=== PATIENT | male | born 1950 | race Caucasian/White ===

== ENCOUNTER → 2020-02-10 15:53 | Outpatient (BNVA) | payer MEDICARE, SELFPAY | PROVIDERS: PCP Family Medicine; Visit Provider Nurse Practitioner | DX: R59.9 Enlarged lymph nodes, unspecified (principal) | CPT/HCPCS: 80053; 85025 ==

== ENCOUNTER 2020-02-21 09:46 | Outpatient (CLI) | payer MEDICARE, SELFPAY ==
--- NOTE | 2020-02-21 10:30 | CT_ITS ---
WS: [id number] CT NECK TECHNIQUE: Contrast-enhanced CT of the neck with coronal and sagittal reformatted images. CLINICAL INFORMATION: enlarged lymphnode DLP: 2944.[address] scans at [facility] use at least one of these dose optimization techniques: automat ed exposure control; mA and/or kV adjustment per patient size (includes targeted exams where dose is matched to clinical indication); or iterative reconstruction. FINDINGS:Heterogeneously enhancing tongue base mass measuring 3.1 x 2.8 x 3.1 cm consistent with miguelina gnancy. Recommend ENT consultation for further evaluation. Mild narrowing of the left greater than ri ght piriform sinus. Enhancing tongue base mass extends to involve the vallecula and free edge of the epiglottis. Parotid glands and submandibular glands are normal. Enlarged heterogeneously enhancing low-attenuatio n bilateral enlarged cervical lymph nodes left greater than right. Left neck lymph node posterior to the angle of mandible and anterior to the sternocleidomastoid measuring 2.3 x 1.7 x 3.5 cm AP by kraft sverse by craniocaudal. Additional adjacent enlarged heterogeneously enhancing lymph nodes. Left subm andibular lymph node measuring 1.6 cm. Findings are consistent with malignancy. Additional pathologic heterogeneous enhancing low-attenuation lymph node posterior to the angle of th e mandible on the right measuring 1.1 CM. Additional smaller but prominent lymph nodes in both cervic al chains level 2, level 3, and posterior triangle. In particular notable lymph nodes in the right lo wer neck posterior to the sternocleidomastoid measuring 11 mm also suspicious for malignancy. Mild fu llness in the left palatine tonsil recommend further evaluation with direct visualization. Bilateral tonsillar calcifications. Normal visualized cervical spine. Mild spondylitic changes. Partially visualized intracranial content s are unremarkable. Mastoid air cells and paranasal sinuses are well aerated. CT/CT neck w con* [id number] IMPRESSION: 1. Large heterogeneously enhancing tongue base mass measuring 2.8 x 3.1 x 3.1 cm consistent with malignancy. Recommend ENT consultation 2. Tongue base mass involves the free edge of the epiglottis and vallecula. Mi ld narrowing of the left piriform sinus. 3. Heterogeneously enhancing low-attenuation lymph nodes in both cervical jerrell ns consistent with metastatic disease most likely squamous cell carcinoma. Larg est left level 2 lymph node measures 1.7 x 2.3 CM. 4. Notable left submandibular lymph node measuring 1.6 CM. Heterogeneously enh ancing right level 2 lymph node at the angle of the mandible measuring 1.1 CM. 5. Mild fullness in the left palatine tonsil although no discrete enhancing ma ss. Recommend direct visualization. 6. Normal parapharyngeal fat. 7. Glottis and subglottic airway are normal.
[2020-02-21] MEDS: iohexol 300 mg/mL 100 mL Btl IV (11:23)
== END 2020-02-21 09:47 | disposition home or self-care (01) ==
LOC: RADWPI 09:51
PROVIDERS: PCP Family Medicine; Visit Provider Nurse Practitioner
DX: R59.9 Enlarged lymph nodes, unspecified (principal); D37.02 Neoplasm of uncertain behavior of tongue
CPT/HCPCS: 70491; Q9967

== ENCOUNTER 2020-03-04 08:58 | Outpatient (CLI) | payer MEDICARE, SELFPAY ==
--- NOTE | 2020-03-04 09:21 | MR_ITS ---
WS: [id number] MRI NECK with and without CONTRAST. COMPARISON: Neck CT 02/21/2020 Multiplanar, multisequence imaging is performed with and without contrast. Large enhancing mass centered at the tongue base involving the lingula and palatine tonsil on the LEF T. The mass extends across the midline to the RIGHT. There is involvement of the superior margin of t he epiglottis and extension into the LEFT piriform sinus. Mass measures 3.3 cm in length transversely x 3.0 cm and anterior posterior x 3.4 cm. There is mild mass effect and narrowing of the airway at t he level of the epiglottis. There are numerous enlarged necrotic enhancing lymph nodes along the cervical chains. These are predo minantly at level 2 with the largest cluster of lymph nodes measuring 5.1 x 2.7 cm. Abnormal lymph no ely at level 2 on the RIGHT with the entire cluster measuring 3.2 x 1.3 cm. Cluster of lymph nodes on the LEFT may be an infiltrate in the sternocleidomastoid muscle as a fat plane is no longer present. There are additional smaller lymph nodes at level 3. The visualized parotid glands and submandibular glands are negative. MR/MR orbit face neck wo/w* [id number] IMPRESSION: 1. Large enhancing mass centered at the tongue base with extension across the midline and inferiorly to involve the epiglottis. Involvement of the epiglottis and airway is greatest on the LEFT. Mass measures 3.3 x 3.0 x 3.4 cm. Similar in appearance to the prior CT of 02/21/2020. 2. Bilateral malignant lymphadenopathy, greatest necrotic lymph node burden on the LEFT with the largest cluster of lymph nodes at level 2 measuring 5.1 x 2. 7 cm.
== END 2020-03-04 08:59 | disposition home or self-care (01) ==
LOC: RADSHAW 09:06
PROVIDERS: PCP Nurse Practitioner; Visit Provider Specialist
DX: D37.02 Neoplasm of uncertain behavior of tongue (principal); R59.1 Generalized enlarged lymph nodes
CPT/HCPCS: 70543; A9579

== ENCOUNTER 2020-03-06 12:14 | Outpatient (CLI) | payer MEDICARE, SELFPAY | END 2020-03-06 12:15 | disposition home or self-care (01) | LOC: LAB 12:18 | PROVIDERS: PCP Nurse Practitioner; Visit Provider Specialist | DX: C02.9 Malignant neoplasm of tongue, unspecified (principal) | CPT/HCPCS: 88305 ==

== ENCOUNTER 2020-03-10 06:00 | Day surgery (SDC) | payer MEDICARE, SELFPAY ==
[2020-03-09 13:14] VITALS: BMI 24.0
[2020-03-10] VITALS (8 sets, daily range): BP systolic 141–180; BP diastolic 67–96; PULSE 69–80; RESP 16–20; TEMP 36.3–36.4; O2SAT 97–100
--- NOTE | 2020-03-10 05:58 | P.ANESASSM_ITS ---
Pre-Anesthetic Assessment Pre-Anesthetic Assessment: Height/Weight: Height 1.83 m Weight 80.286 kg Preop Diagnosis: tongue mass Proposed Procedure: Operation Date: 03/10/20 07:00 Proposed Procedures p Direct Laryngoscopy with biopsy base of tongue(Not Applicable) - Nishant Vinson MD s Excision Neck mass biosopy(Not Applicable) - Nishant Vinson MD Familial anesthetic complications: No hx of anesthsia Was Beta Destiney taken within 24 hours: N/A Last intake: NPO > 8 hrs Social: Social History: No alcohol and No tobacco Comment: Marijuana - 1 week ago Exam: Pre-Anes Outpt Exam: alert, oriented x 3, clear to auscultation bilaterally and regular rate & rhythm Airway: Cervical ROM: WNL MP: 4 Dentition: Other Additional comments: missing teeth Pulmonary: Pulmonary: Cough CV/HEM: CV/HEM: HTN : : None reported Hepatic: Hepatic: None reported GI: GI: None reported Comments: dysphagia associated with tongue mass Metabolic: Metabolic: None reported Musc/skel: Musc/skel: None reported Neuropsych: Neuropsych: None reported Anesthetic Plan: ASA status: 2 Anesthesia: General Risk of > 500 ml blood loss (7ml/kg in children): No Other Pertinent Information: MR/MR orbit face neck wo/w* [id number] IMPRESSION: 1. Large enhancing mass centered at the tongue base with extension across the midline and inferiorly to involve the epiglottis. Involvement of the epiglottis and airway is greatest on the LEFT. Mass measures 3.3 x 3.0 x 3.4 cm. Similar in appearance to the prior CT of 02/21/2020. 2. Bilateral malignant lymphadenopathy, greatest necrotic lymph node burden on the LEFT with the largest cluster of lymph nodes at level 2 measuring 5.1 x 2.7 cm. PFSH Anesthesia PFSH: Medical History (Updated 02/21/20 @ 14:20 by DAWIT Wright) Elevated blood pressure reading Gastro-esophageal reflux disease with esophagitis Surgical History Hx of colonoscopy (~2011) [facility] [place] [facility] [place] Family History Father CAD (coronary artery disease) Social History Smoking and tobacco status: former smoker Quit status (tobacco): has quit using tobacco Year quit tobacco: 2008 Former quit date comment: .5 PPD X 10 yrs Second hand smoke exposure: No Smoking risk assessment/counseling performed?: No Alcohol intake: never Desire information about alcohol rehabilitation?: No Counseling given: No Desire information about substance/drug rehabilitation?: No Counseling given: No Adopted: No Caregiver/support person: No Lives independently: Yes Household members: spouse Housing: House Marital status: service: No Current occupational status: employed 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
[2020-03-10] MEDS: sodium chloride 0.9% 1,000 ML 30 ML IV (06:35)
--- NOTE | 2020-03-10 06:54 | W.PM.OPSUD ---
Surgery/Procedure H&P Update DATE OF PROCEDURE: March 10, 2020 DATE H&P PERFORMED: 03/06/20 H&P UPDATE INFORMATION: I have reviewed H&P completed within last 30 days, I have examined patient prior to procedure and No changes to prior documentation PREOP DIAGNOSIS: Base of tongue mass PRIMARY INDICATION FOR PROCEDURE: Base of tongue and left neck mass PLANNED PROCEDURE: Operation Date: 03/10/20 07:00 Proposed Procedures p Direct Laryngoscopy with biopsy base of tongue(Not Applicable) - Nishant Vinson MD s Excision Neck mass biosopy(Not Applicable) - Nishant Vinson MD
[2020-03-10 06:57] LABS: Basophils % 0.1 %; Eosinophils # 0.1 10^3/uL (0.0-0.8); Eosinophils % 0.6 %; Hemoglobin 15.5 g/dL (11.7-16.6); Lymphocytes # 1.5 10^3/uL (0.8-4.8); Lymphocytes % 18.9 %; Mean Corpuscular HGB Conc 32.3 g/dL (30.0-36.0); Mean Corpuscular Hemoglobin 29.6 pg (28.0-34.0); Mean Corpuscular Volume 91.8 fL (80-94); Mean Platelet Volume 9.4 fL (7.4-10.4); Monocytes # 0.7 10^3/uL (0.2-0.9); Neutrophils # 5.9 10^3/uL (1.8-7.7); Neutrophils % 72.2 %; Nucleated Red Blood Cells % 0 %; Platelet Count 274 10^3/cmm (130-400); Red Blood Count 5.23 10^6/uL (4.1-5.3); Red Cell Distribution Width 12.3 % (12.1-15.1); White Blood Count 8.1 10^3/uL (4.0-10.0)
[2020-03-10 07:12] LABS: Blood Urea Nitrogen 13 mg/dL (8-23); Calcium 9.5 mg/dL (8.5-10.5); Carbon Dioxide 24 mmol/L (22-29); Chloride 103 mmol/L (98-107); Glomerular Filtration Rate 84.2 mL/min (90-130); Glucose 120 mg/dL (65-115); Osmolality Calculated 287 mOsm/kg (285-295); Sodium 140 mmol/L (136-145)
[2020-03-10] MEDS: neomycin-poly-bacitracin oint 28 gm 1 APPLIC TOPICAL (07:49)
[2020-03-10] MEDS: EPINEPHrine 1 mg/mL INJ XX (08:02)
[2020-03-10] MEDS: fluorescein 1 mg Strip XX (08:10)
--- NOTE | 2020-03-10 08:38 | P.OP_ITS ---
Operative Report Date of procedure: March 10, 2020 Pre-op Diagnosis: 1) Left Base of tongue mass, 2) Left Neck Mass Post-op diagnosis: same Post-op Findings: Left Base of Tongue Mass Left Neck Mass Procedure Done: Direct Laryngoscopy with Biopsy Open biopsy, Left Neck Mass Specimens removed/disposition: Left Base of Tongue biopsy Left Neck Mass Biopsy Surgeon: Nishant Vinson Paving Supervisor: Agustina Jennings Anesthesia: General Estimated blood loss (mL): 10 IV fluids (mL): 1,000 Complications: None Condition: stable Disposition: PACU Brief History: 69 yo wm with a h/o a left neck and left base of tongue mass who presents for surgical evaluation and biopsy. Procedure: The patient was identified in the preoperative holding area and was taken to the operating room where he was placed on the operating table in the supine position. Anesthesia was obtained with general endotracheal anesthesia and the table was turned 90 degrees to the patient's left. A skin incision was drawn out over the left neck mass approximately 3 fingerbreadths below the angle of the mandible at level 3 of the left neck. The incision was injected with local anesthesia and the patient was then prepped and draped in the usual sterile fashion. Using a 15 blade, an incision was made in the left neck over the level 3 neck mass. Using Metzenbaum scissors dissection proceeded into the subcutaneous tissues where this mass was encountered. The mass was dissected out on its lateral surface and biopsies were taken with a 15 blade. Hemostasis was achieved with bipolar cautery and a piece of Surgicel was placed in the biopsy site. At this point the wound was closed with interrupted 4-0 Monocryl and the skin was closed with a running 5-0 Prolene. The left neck wound was then cleaned and covered with triple antibiotic ointment. Attention was then t urned to the oral cavity. A bimanual exam was performed and a left sided tongue base mass was palpated. A surgical laryngoscope was advanced into the right oral cavity after placing a Silastic tooth guard on the patient. A systematic inspection was carried of the patient's oral cavity, oropharynx, hypopharynx, and larynx. There was an irregular left base of tongue mass that was biopsied with cup forceps. Hemostasis was achieved with topical application of 09/999 epinephrine. At this point a reinspection was carried out and the patient was found to have an otherwise normal vallecula. The epiglottis was normal, the aryepiglottic folds were normal, the false and true cords were normal and the pyriform sinuses were normal. Once the exam was accomplished, the laryngoscope and tooth guard were removed from the patient and the procedure was terminated. Control of the patient was returned to anesthesia where he underwent an uneventful reversal of anesthesia and extubation and was taken to the recovery room in stable condition. There were no operative or anesthetic complications.
== END 2020-03-10 09:44 | disposition home or self-care (01) ==
PROVIDERS: PCP Nurse Practitioner; Visit Provider Specialist
PROC: 0CJS8ZZ Inspection of Larynx, Via Natural or Artificial Opening Endoscopic (ICD-10-PCS; CPT 11106; principal; 2020-03-10 07:00)
PROC: (CPT 11106; 2020-03-10 07:00)
DX: C01 Malignant neoplasm of base of tongue (principal); R22.1 Localized swelling, mass and lump, neck; I10 Essential (primary) hypertension; Z82.49 Family history of ischemic heart disease and other diseases of the circulatory system; Z87.891 Personal history of nicotine dependence
CPT/HCPCS: 11106; 31535; 12345; 36415; 80048; 85025; 88307; 88309; J0171; J0690; J1100; J2001; J2250; J2370; J2405; J2704; J2710; J2765; J3010; J3490; J7030

== ENCOUNTER → 2020-06-25 09:44 | Outpatient (BNVA) | payer MEDICARE, SELFPAY | PROVIDERS: PCP Nurse Practitioner; Visit Provider Nurse Practitioner | DX: D64.9 Anemia, unspecified (principal); R39.11 Hesitancy of micturition; I10 Essential (primary) hypertension; Z85.819 Personal history of malignant neoplasm of unspecified site of lip, oral cavity, and pharynx; Z93.1 Gastrostomy status | CPT/HCPCS: 80053; 81000; 85025; G0103 ==

== ENCOUNTER 2020-06-26 19:42 | Emergency (ER) | payer MEDICARE, SELFPAY ==
[2020-06-26 20:11] VITALS: BP 98/61; PULSE 100; RESP 18; TEMP 37.2; O2SAT 97; BMI 20.9
--- NOTE | 2020-06-26 20:31 | ECG_ITS ---
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 Measurements Intervals [place] Rate: 77 P: 32 WI: 149 QRS: 21 QRSD: 71 T: 37 QT: 349 QTc: 396 Interpretive Statements SINUS RHYTHM No previous ECG available for comparison Electronically Signed On 06-28-2020 20:31:07 CDT by Joaquin Olsen M.D. [id number]
[2020-06-26 20:46] LABS: Basophils % 0.3 %; Eosinophils % 0.3 %; Hematocrit 24.1 % (42.0-52.0); Hemoglobin 7.6 g/dL (11.7-16.6); Lymphocytes # 0.5 10^3/uL (0.8-4.8); Lymphocytes % 12.1 %; Mean Corpuscular HGB Conc 31.5 g/dL (30.0-36.0); Mean Corpuscular Hemoglobin 31.8 pg (28.0-34.0); Mean Corpuscular Volume 100.8 fL (80-94); Mean Platelet Volume 8.6 fL (7.4-10.4); Monocytes # 0.6 10^3/uL (0.2-0.9); Monocytes % 14.9 %; Neutrophils # 2.79 10^3/uL (1.8-7.7); Neutrophils % 71.4 %; Nucleated Red Blood Cells % 0 %; Platelet Count 331 10^3/cmm (130-400); Red Blood Count 2.39 10^6/uL (4.1-5.3); Red Cell Distribution Width 18.4 % (12.1-15.1); White Blood Count 3.9 10^3/uL (4.0-10.0)
[2020-06-26 20:59] LABS: INR 0.89 (0.8-1.2)
[2020-06-26 21:02] VITALS: BP 107/72; BP 91/57; BP 94/63; PULSE 88; PULSE 99
[2020-06-26 21:08] LABS: Alanine Aminotransferase 26 U/L (0-41); Albumin Level 3.5 g/dL (3.5-5.2); Alkaline Phosphatase 72 IU/L (40-130); Anion Gap 15.6 (5-19); Aspartate Amino Transferase 30 U/L (0-40); Blood Urea Nitrogen 30 mg/dL (8-23); Calcium 9.5 mg/dL (8.5-10.5); Carbon Dioxide 26 mmol/L (22-29); Chloride 94 mmol/L (98-107); Creatine Phosphokinase 24 U/L (39-308); Globulin 2.4 g/dL (1.3-4.6); Glomerular Filtration Rate 46.7 mL/min (90-130); Glucose 151 mg/dL (65-115); Osmolality Calculated 281 mOsm/kg (285-295); Potassium 4.6 mmol/L (3.5-5.1); Sodium 131 mmol/L (136-145); Total Bilirubin 0.2 mg/dL (0.15-1.2); Total Protein 5.9 g/dL (6.6-8.7)
[2020-06-26 21:11] LABS: Troponin(5th) Baseline 10 ng/L (0-15)
[2020-06-26 22:27] VITALS: BP 108/69; PULSE 86; RESP 16; TEMP 36.9; O2SAT 97
[2020-06-26] MEDS: sodium chloride 0.9% 100 mL Bag 50 ML IV (22:29)
[2020-06-26 22:30] VITALS: BP 111/71; PULSE 83; RESP 16; TEMP 36.9; O2SAT 97
--- NOTE | 2020-06-26 22:31 | ECG_ITS ---
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 Measurements Intervals [place] Rate: 69 P: 34 NE: 154 QRS: 19 QRSD: 68 T: 36 QT: 357 QTc: 383 Interpretive Statements SINUS RHYTHM Compared to ECG 06/26/2020 20:01:57 No significant changes Electronically Signed On 06-29-2020 17:37:39 CDT by Joaquin Olsen M.D. [id number]
--- NOTE | 2020-06-26 22:38 | PC.NURSE ---
Patient tolerating blood transfusion without difficulties. VS remain stable. Patient self repositioned in bed for maximum comfort. Lights dimmed, door closed to promote calming environment.
[2020-06-26 22:45] VITALS: BP 107/71; PULSE 85; RESP 15; TEMP 36.9; O2SAT 98
[2020-06-27 00:22] VITALS: BP 121/83; PULSE 78; RESP 16; TEMP 37
--- NOTE | 2020-06-27 00:24 | PC.NURSE ---
Patient tolerated first transfusion without difficulties. NAD noted. VSS. 2nd transfusion has been initiated.
[2020-06-27 00:28] VITALS: BP 121/83; PULSE 81; RESP 14; O2SAT 99
--- NOTE | 2020-06-27 00:31 | ED_ITS ---
HPI - Dizziness General: Chief Complaint: Dizziness Stated Complaint: sent from doc for blood? Time Seen by Provider: 06/26/20 20:19 History of Present Illness: HPI Narrative: 69-year-old male complains of progressive weakness and dizziness, especially with changing position over the past couple of days. He saw his primary nurse practitioner yesterday, and laboratory was ordered. She had called him earlier today to tell him that his blood count was low, which may be a cause of his symptoms. 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 His last induction was on the I believe of May. He denies any bloody, dark, or tarry stools. MD elicited complaint: dizziness, lightheadedness and difficulty walking Pertinent past history: anemia Onset (ago): day(s) Timing: gradual onset Severity: moderate Description: lightheadedness and difficulty walking Context: recent illness History of similar symptoms: No Exacerbating factors: change in body position, exertion and standing Relieving factors: nothing Associated symptoms: Reports short of breath; Denies change in hearing, chest pain, chills, fevers/chills, headache(s), nausea or vomiting Review of Systems Const: Denies: fever(s) or chills Eyes: Denies: change in vision or blurry vision ENMT: Denies: swelling of lips/tongue, change in hearing, epistaxis or sinus pain Card: Denies: chest pain Resp: Denies: dyspnea, productive cough, non-productive cough or wheezing GI: Denies: nausea or vomiting : Denies: difficulty urinating, dysuria or hematuria Musc: Reports: back pain; Denies: neck pain, joint redness or joint warmth Skin/Breast: Denies: rash or pruritus Neuro: Denies: headache(s) Psych: Denies: anxiety PFSH ED PFSH: Medical History (Updated 06/27/20 @ 00:45 by Duglas Wilkerson DO) Gastro-esophageal reflux disease with esophagitis Gastrointestinal tube in situ 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 Bennett Surgical History Hx of colonoscopy (~2011) [facility] [place] Family History Father CAD (coronary artery disease) Social History Smoking and tobacco status: former smoker Quit status (tobacco): has quit using tobacco Year quit tobacco: 2008 Former quit date comment: .5 PPD X 10 yrs Second hand smoke exposure: No Smoking risk assessment/counseling performed?: No Alcohol intake: never Desire information about alcohol rehabilitation?: No Counseling given: No Desire information about substance/drug rehabilitation?: No Counseling given: No Adopted: No Caregiver/support person: No Lives independently: Yes Household members: spouse Housing: House Marital status: service: No Current occupational status: employed 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 Pets and animals: Yes (dogs) History of recent travel: No Current gender identity: Male Physical Exam Const: GENERAL APPEARANCE: well developed ORIENTATION/CONSCIOUSNESS: Yes oriented to person, Yes oriented to place and Yes oriented to time HENMT: COMMON NORMALS: normocephalic, external ears normal and Normal external nose present HEAD & SCALP: normocephalic FACE & SINUS: normal facial exam NOSE: Normal external nose present and No nasal discharge present EXTERNAL EAR: Yes external ears normal Eye: COMMON NORMALS: Equal, round and reactive pupils present, EOMs intact bilaterally and conjunctivae normal EYELID: eyelids normal CONJUNCTIVA: Yes conjunctivae normal PUPIL: Yes Equal, round and reactive pupils present Neck/C-Spine: COMMON NORMALS: full ROM GENERAL: No tracheal deviation CERVICAL SPINE: Yes normal cervical lordosis and No Cervical spine tenderness Chest: COMMONS NORMALS: normal inspection of the chest CHEST: No tenderness Resp: COMMON NORMALS: clear to auscultation bilaterally EFFORT & INSPECTION: No tachypneic, No respiratory distress, No retractions, No uses accessory muscles and No tracheal deviation AUSCULTATION: clear to auscultation bilaterally, no rhonchi, no wheezes and lung sounds not diminished Cardio: COMMON NORMALS: regular rate and regular rhythm RATE: regular rate RHYTHM: regular rhythm HEART SOUNDS: no murmurs PERIPHERAL PULSES: radial pulses present GI: INSPECTION: No abdominal distension AUSCULTATION: No Hyperactive bowel sounds present and No Hypoactive bowel sounds present PALPATION: No Guarding due to palpation present (GI) and No Rigid due to palpation PERCUSSION: no dullness to percussion and no tympanic to percussion Neuro: SENSORIUM/ORIENTATION: Yes oriented to person, Yes oriented to place and Yes oriented to time Psych: COMMON NORMALS: mental status grossly normal Skin: COMMON NORMALS: no rashes or lesions noted GENERAL SKIN EXAM: no rashes or lesions noted Course Vital Signs: Vital signs: Vital Signs Temperature 98.6 F 06/27/20 00:37 Pulse Rate 77 06/27/20 00:37 Respiratory Rate 16 06/27/20 00:37 Blood Pressure 111/72 06/27/20 00:37 Pulse Oximetry 99 06/27/20 00:37 MDM - Dizziness MDM Narrative: Medical decision making narrative: Patient is normotensive. He is non-tachycardic he is rather symptomatic. His hemoglobin is 7.6. It was over 12 in February. He is crossmatched for 2 units of packed red blood cells here, and transfused. He had no problems with his transfusion he is feeling improved. We will watch him for a bit, and then discharge him back to home to continue with oncology follow-up. Lab Data: Labs: Lab Results 06/26/20 06/26/20 06/26/20 Range/Units 20:27 20:27 20:27 WBC 3.9 L (4.0-10.0) 10^3/ uL RBC 2.39 L (4.1-5.3) 10^6/u L Hgb 7.6 L (11.7-16.6) g/dL Hct 24.1 L (42.0-52.0) % MCV 100.8 H (80-94) fL MCH 31.8 (28.0-34.0) pg MCHC 31.5 (30.0-36.0) g/dL RDW 18.4 H (12.1-15.1) % Plt Count 331 (130-400) 10^3/c mm MPV 8.6 (7.4-10.4) fL Neut % (Auto) 71.4 % Lymph % (Auto) 12.1 % Boundary % (Auto) 14.9 % Eos % (Auto) 0.3 % Baso % (Auto) 0.3 % Neut # (Auto) 2.79 (1.8-7.7) 10^3/u L Lymph # (Auto) 0.5 L (0.8-4.8) 10^3/u L Boundary # (Auto) 0.6 (0.2-0.9) 10^3/u L Eos # (Auto) 0.0 (0.0-0.8) 10^3/u L Baso # (Auto) 0.0 (0.0-0.1) 10^3/u L Nucleated RBC % (a uto) 0 % Nucleated RBCs # 0.0 /100WBC PT 12.30 (12.1-14.9) SECO NDS INR 0.89 (0.8-1.2) Sodium (136-145) mmol/L Potassium (3.5-5.1) mmol/L Chloride (98-107) mmol/L Carbon Dioxide (22-29) mmol/L Anion Gap (5-19) BUN (8-23) mg/dL Creatinine (0.7-1.2) mg/dL GFR Calculation (90-130) mL/min Glucose (65-115) mg/dL Calculated Osmolal ity (285-295) mOsm/k g Calcium (8.5-10.5) mg/dL Magnesium (1.7-2.3) mg/dL Total Bilirubin (0.15-1.2) mg/dL AST (0-40) U/L ALT (0-41) U/L Alkaline Phosphata se (40-130) IU/L Creatine Kinase (39-308) U/L Troponin T Baselin e (0-15) ng/L Total Protein (6.6-8.7) g/dL Albumin (3.5-5.2) g/dL Globulin (1.3-4.6) g/dL Blood Type O Negative Rho(D) Type Negative Antibody Screen Negative Crossmatch See Detail 06/26/20 06/26/20 Range/Units 20:27 20:27 WBC (4.0-10.0) 10^3/ uL RBC (4.1-5.3) 10^6/u L Hgb (11.7-16.6) g/dL Hct (42.0-52.0) % MCV (80-94) fL MCH (28.0-34.0) pg MCHC (30.0-36.0) g/dL RDW (12.1-15.1) % Plt Count (130-400) 10^3/c mm MPV (7.4-10.4) fL Neut % (Auto) % Lymph % (Auto) % Boundary % (Auto) % Eos % (Auto) % Baso % (Auto) % Neut # (Auto) (1.8-7.7) 10^3/u L Lymph # (Auto) (0.8-4.8) 10^3/u L Boundary # (Auto) (0.2-0.9) 10^3/u L Eos # (Auto) (0.0-0.8) 10^3/u L Baso # (Auto) (0.0-0.1) 10^3/u L Nucleated RBC % (a uto) % Nucleated RBCs # /100WBC PT (12.1-14.9) SECO NDS INR (0.8-1.2) Sodium 131 L (136-145) mmol/L Potassium 4.6 (3.5-5.1) mmol/L Chloride 94 L (98-107) mmol/L Carbon Dioxide 26 (22-29) mmol/L Anion Gap 15.6 (5-19) BUN 30 H (8-23) mg/dL Creatinine 1.5 H (0.7-1.2) mg/dL GFR Calculation 46.7 L (90-130) mL/min Glucose 151 H (65-115) mg/dL Calculated Osmolal ity 281 L (285-295) mOsm/k g Calcium 9.5 (8.5-10.5) mg/dL Magnesium 2.0 (1.7-2.3) mg/dL Total Bilirubin 0.2 (0.15-1.2) mg/dL AST 30 (0-40) U/L ALT 26 (0-41) U/L Alkaline Phosphata se 72 (40-130) IU/L Creatine Kinase 24 L (39-308) U/L Troponin T Baselin e 10 (0-15) ng/L Total Protein 5.9 L (6.6-8.7) g/dL Albumin 3.5 (3.5-5.2) g/dL Globulin 2.4 (1.3-4.6) g/dL Blood Type Rho(D) Type Antibody Screen Crossmatch Discharge Plan Discharge Patient Disposition: Home Clinical Impression: History of oral cancer Anemia Qualifiers: Anemia type: unspecified type Qualified Code(s): D64.9 - Anemia, unspecified Condition: Stable Prescriptions: No Action tamsulosin [Flomax] 0.4 mg capsule 0.4 mg PO DAILY Qty: 30 RF: 2 Discharge Orders: Discharge Order (Routine); Ordered 06/27/20 Ordered By: Duglas Wilkerson Referrals: Courtney Bernard, [employer] [Primary Care Provider] - 4-7 days Discharge Diet: Advance as tolerated Discharge Activity: Increase activity as tolerated Patient Instructions: Anemia (ED) Activity Restrictions/Additional Instructions: Return to the emergency department for worsening shortness of breath, generalized weakness, syncope or passing out, other concerning symptoms. Follow-up with your provider, and continue your oncology follow-up as well. Coding Level of Care Code ED Clinical Haematologist for [facility] Fwd Exam Comprehensive
[2020-06-27 00:37] VITALS: BP 111/72; PULSE 77; RESP 16; TEMP 37; O2SAT 99
[2020-06-27 02:50] VITALS: BP 118/73; PULSE 72; RESP 16; O2SAT 98
--- NOTE | 2020-06-27 03:12 | PC.NURSE ---
Patient completed the second transfusion without difficulties. NAD noted. VSS. Patient is up for discharge per Dr. Wilkerson. Due to the time of night, the patient will sleep until 0600 then his will be notified. The will be here to berry picker the at 0700.
[2020-06-27 07:15] VITALS: BP 150/92; PULSE 82; RESP 18; O2SAT 97
== END 2020-06-27 07:15 | disposition home or self-care (01) ==
PROVIDERS: Emergency Provider Emergency Medicine; PCP Nurse Practitioner
DX: D64.9 Anemia, unspecified (principal); Z85.819 Personal history of malignant neoplasm of unspecified site of lip, oral cavity, and pharynx; R06.02 Shortness of breath; Z87.891 Personal history of nicotine dependence
CPT/HCPCS: 12345; 36415; 36430; 80053; 82550; 83735; 84484; 85025; 85610; 86850; 86900; 86920; 93005; 99284; P9016

== ENCOUNTER → 2020-06-30 11:37 | Outpatient (BNVA) | payer MEDICARE, SELFPAY | PROVIDERS: PCP Nurse Practitioner; Visit Provider Nurse Practitioner | DX: D64.9 Anemia, unspecified (principal) | CPT/HCPCS: 85025 ==

== ENCOUNTER 2020-07-09 09:42 | Outpatient (CLI) | payer MEDICARE, SELFPAY ==
--- NOTE | 2020-07-09 09:55 | CT_ITS ---
WS: [id number] CT NECK WITHOUT CONTRAST. HISTORY: Malignant neoplasm at the base of the tongue, swelling and lump. TECHNIQUE: Contiguous 5 mm axial images are performed through the neck without intravenous contrast. Sagittal and coronal reformats are also submitted. All CT scans at [facility] use at leas t one of these dose optimization techniques: automated exposure control; mA and/or kV adjustment per patient size (includes targeted exams where dose is matched to clinical indication); or iterative rec onstruction. CONTRAST: CONTRAST: None DLP: 850.32 mGy.cm COMPARISON: 02/21/2020 and 03/04/2020 Significant improvement in the previously described mass involving the tongue base, epiglottis and va llecula. There is some very mild residual asymmetric thickening involving the tongue base does cross the midline. Since the prior CT examination there is been a significant improvement. Less mass effect and narrowing of the hypopharynx. There is less involvement involving the epiglottis. There is some very mild asymmetry of the airway which is probably related to prior treatment and there is a small a mount of edema at the level of the vocal cords. Previously described lymphadenopathy has improved. Large residual level 2 lymph node on the LEFT at 1 .3 cm. Significant decrease in size of the level 2 lymph node on the right now measuring less than a centimeter. Interval change in appearance of the RIGHT jugular vein. Jugular vein is enlarged and the wall is of increased density as compared to the lumen. No IV contrast was given for this examination but jugular vein thrombosis on the RIGHT is not excluded. No osseous abnormalities. Visualized portions of the skull base demonstrate no abnormalities. Orbits and globes are within norm al limits. No soft tissue masses. Visualized paranasal sinuses and mastoid air cells are normal. Slightly spiculated nodule measuring 5 mm at the RIGHT apex. May have been present on the prior study but better seen today. CT/CT neck wo con [id number] IMPRESSION: 1. This examination was performed without IV contrast. 2. Significant decrease in size of the previously described tongue base mass w ith extension to the epiglottis. Persistent enhancement cannot be determined wi thout IV contrast but there is just very minimal LEFT parapharyngeal soft tissu e thickening and thickening along the posterior tongue. 3. Significant decrease in size of the cervical chain lymph nodes. The largest lymph node at level II on the LEFT is 13 mm. 4. Indeterminate for RIGHT jugular vein thrombosis, new since 02/21/2020. 5. 5 mm spiculated nodule at the RIGHT apex. Recommend follow-up chest CT in 3 months.
== END 2020-07-09 09:43 | disposition home or self-care (01) ==
LOC: RAD 09:44
PROVIDERS: PCP Nurse Practitioner; Visit Provider Specialist
DX: C01 Malignant neoplasm of base of tongue (principal); R22.1 Localized swelling, mass and lump, neck
CPT/HCPCS: 70490

== ENCOUNTER 2020-07-15 09:36 | Outpatient (CLI) | payer MEDICARE, SELFPAY ==
--- NOTE | 2020-07-15 09:40 | FL_ITS ---
WS: [id number] MODIFIED BARIUM SWALLOW TECHNIQUE: Modified barium swallow with speech therapy using multiple consistencies. FLUOROSCOPY TIME: 1.2 minutes. CLINICAL INFORMATION: Other dysphagia COMPARISON: None. FINDINGS: History of tongue base mass. Multiple consistencies utilized. Slightly delayed oropharyngeal phase with pooling in the vallecula. Penetration and aspiration with active cough clearing with the nectar consistency. FL/FL barium swallow modifd [id number] IMPRESSION: Penetration and aspiration with nectar consistency. Active cough clearing.
== END 2020-07-15 09:37 | disposition home or self-care (01) ==
LOC: RAD 09:39
PROVIDERS: PCP Nurse Practitioner; Visit Provider Specialist
DX: D37.02 Neoplasm of uncertain behavior of tongue (principal); R22.1 Localized swelling, mass and lump, neck; R13.10 Dysphagia, unspecified
CPT/HCPCS: 74230; 92611

== ENCOUNTER 2020-07-27 12:52 | Outpatient (CLI) | payer MEDICARE, SELFPAY ==
[2020-07-27 13:59] LABS: Basophils % 0.3 %; Eosinophils # 0.1 10^3/uL (0.0-0.8); Eosinophils % 0.9 %; Hematocrit 32.6 % (42.0-52.0); Hemoglobin 10.2 g/dL (11.7-16.6); Lymphocytes # 0.7 10^3/uL (0.8-4.8); Lymphocytes % 10.4 %; Mean Corpuscular HGB Conc 31.3 g/dL (30.0-36.0); Mean Corpuscular Hemoglobin 31.5 pg (28.0-34.0); Mean Corpuscular Volume 100.6 fL (80-94); Mean Platelet Volume 9.3 fL (7.4-10.4); Monocytes # 0.7 10^3/uL (0.2-0.9); Monocytes % 11.3 %; Neutrophils # 4.88 10^3/uL (1.8-7.7); Neutrophils % 76.8 %; Nucleated Red Blood Cells % 0 %; Platelet Count 221 10^3/cmm (130-400); Red Blood Count 3.24 10^6/uL (4.1-5.3); Red Cell Distribution Width 14.8 % (12.1-15.1); White Blood Count 6.4 10^3/uL (4.0-10.0)
--- NOTE | 2020-07-27 15:12 | ONC CON_ITS ---
Dr. Han New Patient Note Patient: Osman Almanza Unit #: [id number]: 1950 Dicatated By: Latonia Han M.D.Date of Visit: Jul 27, 2020 Onc MED New Patient/Consult Referring Physician: Linden Dick History of Present Illness: Mr. Osman Almanza, is a 69-year-old gentleman who was in his usual health until January 2020 when he was diagnosed with left base of tongue CA, p16 positive, nonkeratinizing type squamous cell carcinoma, clinical T4 N2 cM0, was referred to [facility] where he underwent combined chemoradiation with high-dose cisplatin 3 weekly x3 which he completed on June 04, 2020., And on June 10, 2020 he was admitted to [facility] with chills, generalized weakness, oral pain and coughing and his lab work-up done there showed creatinine 1.93, white blood count 1.6 ANC 1200 hemoglobin 8.8 hematocrit and platelets 178,000 patient was treated with IV antibiotics and then recently seen by PMD with progressive anemia and patient was given 2 units of packed RBC with that his follow-up labs done on June 30, 2020 showed white blood count 6 hemoglobin 11 hematocrit 33.7 platelets 360,000., As per patient his follow-up CT scan done at [place] after combined chemoradiation therapy showed excellent response to the treatment with resolution of left basilar tongue lesion but there was incidental finding of lung nodule, now being monitored and scheduled for follow-up CT scan of chest which is to be done today. Patient also has G-tube placement, which is functioning well. And now he has follow-up with speech/physical therapy regarding initiation of oral feeding and once start accepting orally, G-tube will be discontinued. Patient had colonoscopy done in 2007, as per patient it was unremarkable. Patient denies any melena or hematochezia, denies any hemoptysis or hematemesis, denies any jaundice but complaining of dry mouth otherwise no chest pain or shortness of breath no palpitation, no fever or chills. Past Medical History: Mr. Almanza'kulwant medical history is unremarkable. Past Surgical History: Mr. Almanza's surgical/procedural history consists of g tube placement in 2019 and central line placement in 2019. Medications: Tamsulosin HCl 1 Tablet (of 0.4 mg) Capsule Oral daily Allergies: No Known Allergies. Social History: Mr. Almanza is and he is an unknown. Mr. Almanza no longer smokes. He has no history of drinking. Family History: There is no documented family history. Review Of Symptoms: Constitutional - Appetite is good and weight is stable. No fever, night sweats, or hot flashes. Energy level is fair, ENMT - No sinus congestion/drainage. No mouth sores. No sore throat or difficulty swallowing, Hematologic/Lymphatic - No abnormal bruising or bleeding, Respiratory - No shortness of breath. No cough. No pleuritic pain or hemoptysis, Cardiovascular - No angina pain. No palpitations, Gastrointestinal - No nausea or vomiting. No heartburn or acid reflux. No diarrhea or constipation. No blood in the stool or black stools, Genitourinary (M) - No dysuria or hematuria. No urinary frequency. No urgency or incontinence, Musculoskeletal - No joint or bone pain, Neurologic - No headache. Positive for dizziness upon standing. No numbness or tingling. No other focal neurologic symptoms, Psychiatric - No anxiety or depression. No insomnia. Vital Signs: Performed on Jul 27, 2020 14:16: 0, 22.12, 1.91 sq.m, 71 in, 98 %, 87 /min, 16 /min, 134/62 mm(hg), 98.0 F (LOW), and 158.6 lbs (HIGH). Performance Status: 1 - No physically strenuous activity, but ambulatory and able to carry out light or sedentary work (e.g. office work, light house work). (ECOG) Physical Examination: ENMT - Post chemoradiation changes on the neck, dry oral mucosa but no mucositis or thrush or jaundice, Respiratory - Lungs are clear to auscultation, Cardiovascular - Regular rate and rhythm of heart, Abdomen - Soft, bowel sounds present, G tube site, clean, Extremities - No visible edema. Lab/Imaging: Most recent lab results are not available for this patient. Impression: Macrocytic normochromic anemia etiology unclear could be nutritional as patient is on G-tube feeding since diagnosed with tongue CA, other possibility could be due to chemoradiation or chronic blood loss from chemoradiation induced pharyngitis or considering his age underlying myelodysplasia cannot be ruled out. Status post 2 units of packed RBCs in June 2020 History of left base of tongue CA nonkeratinizing type squamous cell carcinoma p16 positive, T4a, N2C, M0, stage Tameka, status post combined chemoradiation with high-dose cisplatin 3 weekly x3 completed on June 04, 2020 at [facility], as per patient, follow-up CT scan shows excellent response Incidental finding of lung nodule, now being monitored with follow-up CT scan of chest. History of smoking 3 pack/year, now quit. Plan: Discussed with patient regarding his labs white blood count 6.4 hemoglobin 10.2 hematocrit 32.6 platelets 221,000 MCV 100.6 with a normal differential Clinically, patient doing reasonably well, now recovering from combined chemoradiation therapy with high-dose cisplatin, patient still using G-tube but now being evaluated by speech/physical therapy for oral feeding. As far as anemia is concerned etiology could be multifactorial including nutritional as patient was on G-tube feeding for more than 3 months other possibility could be due to combined chemoradiation or due to mild renal insufficiency or considering his age underlying myelodysplasia cannot be ruled out. Patient received 2 units of packed RBCs with that hemoglobin improved to 11 g when checked on June 30, 2020, his follow-up CBC done today showed persistent moderate anemia hemoglobin 10.2 g hematocrit 32.6 with MCV 100.6, at this point will consider basic anemia work-up which includes iron studies, B12 folic acid level and reticulocyte count and if there is no abnormality and hemoglobin continued to drop, will check copper level and also may consider bone marrow evaluation. Patient return to clinic in 2 weeks with CBC and will also follow with a CT scan of chest which is scheduled for today for lung nodule. Signed By: Latonia Han M.D. <<Signature on File>>
[2020-07-27 15:54] LABS: Iron 47 ug/dL (59-158); Percent Saturation 23.1 % (20-50); Total Iron Binding Capacity 203 mcg/dl; Unsaturated Iron Binding 156 ug/dL (112-347)
[2020-07-27 16:06] LABS: Ferritin 1491 ng/mL (30-400)
[2020-07-27 16:09] LABS: Vitamin B12 1304 pg/mL (232-1245)
[2020-07-27 16:22] LABS: Folate Level > 20.0 ng/mL (4.5-32.2)
== END 2020-07-27 12:53 | disposition home or self-care (01) ==
LOC: ONCMED 12:55
PROVIDERS: PCP Nurse Practitioner; Visit Provider Internal Medicine Hematology & Oncology
DX: Z08 Encounter for follow-up examination after completed treatment for malignant neoplasm (principal); Z85.810 Personal history of malignant neoplasm of tongue; D50.0 Iron deficiency anemia secondary to blood loss (chronic); D53.9 Nutritional anemia, unspecified; R91.1 Solitary pulmonary nodule; Z93.1 Gastrostomy status; Z92.3 Personal history of irradiation; Z87.891 Personal history of nicotine dependence; Z92.21 Personal history of antineoplastic chemotherapy
CPT/HCPCS: 36415; 71250; 82607; 82728; 82746; 83540; 83550; 85025; 85045; 99203

== ENCOUNTER 2020-07-27 14:42 | Outpatient (CLI) | payer MEDICARE, SELFPAY ==
--- NOTE | 2020-07-27 14:53 | CT_ITS ---
WS: [id number] CT CHEST WITHOUT INTRAVENOUS CONTRAST HISTORY: MALIGNANT NEOPLASM AT BASE OF TONGUE TECHNIQUE: Contiguous 5 mm axial imaging performed on the thorax. Coronal and sagittal reformats are submitted. All CT scans at [facility] use at least one of these dose optimization techniq ues: automated exposure control; mA and/or kV adjustment per patient size (includes targeted exams wh ere dose is matched to clinical indication); or iterative reconstruction. CONTRAST: None DLP: 804.65 mGycm COMPARISON: Neck CT 07/09/2020 Lungs and central airway: Hyperexpanded lungs with emphysema. Benign calcified granuloma scattered th roughout the lungs. Bilateral upper lobe pulmonary nodules. The RIGHT spiculated nodule measuring 5 m m has not significantly changed. There are a few very small 3 to 4 mm nodules at the LEFT apex these nodules are may be postinflammatory. These were present on 02/21/2020. No abnormality was noted on the prior PET/CT from 04/02/2020. Pleura: Normal. No pleural effusion. Heart and pericardium: Normal size heart with no pericardial effusion. Mediastinum and lynda: Small mediastinal and hilar lymph nodes. Several of these lymph nodes are calci fied consistent with benign disease. No enlarging nodes. Vessels: Mild atherosclerosis aorta. Normal size pulmonary artery. RIGHT jugular vein is enlarged. Kn own thrombosis. Chest wall and lower neck: None RIGHT jugular vein thrombosis. Upper abdomen: PEG tube remains in good position. No adenopathy identified. Osseous structures: No destructive process. CT/CT chest wo con [id number] IMPRESSION: 1. Subcentimeter, bilateral upper lobe pulmonary nodules. No increase in size since 07/09/2020. Negative on the PET/CT of 04/02/2020 but may be too small to ac curately assess by PET/CT. Suggest [address] follow-up. 2. Prior granulomatous disease. 3. PEG tube remains in good position. 4. No enlarging mediastinal or hilar lymph nodes.
== END 2020-07-27 14:43 | disposition home or self-care (01) ==
LOC: RADWPI 14:48
PROVIDERS: PCP Nurse Practitioner; Visit Provider Specialist
DX: C01 Malignant neoplasm of base of tongue (principal); R91.8 Other nonspecific abnormal finding of lung field
CPT/HCPCS: 71250

== ENCOUNTER 2020-07-28 06:00 | Outpatient (RCR) | payer MEDICARE, SELFPAY | END 2020-08-24 23:59 | disposition home or self-care (01) | LOC: TST 06:00 | PROVIDERS: PCP Nurse Practitioner; Referring Provider Nurse Practitioner; Visit Provider Nurse Practitioner | DX: D37.02 Neoplasm of uncertain behavior of tongue (principal); R13.12 Dysphagia, oropharyngeal phase | CPT/HCPCS: 92526; 92610 ==

== ENCOUNTER 2020-08-10 06:23 | Outpatient (CLI) | payer MEDICARE, SELFPAY ==
[2020-08-10 14:52] LABS: Basophils % 0.3 %; Eosinophils # 0.1 10^3/uL (0.0-0.8); Eosinophils % 2.3 %; Hematocrit 32.7 % (42.0-52.0); Hemoglobin 10.5 g/dL (11.7-16.6); Lymphocytes # 0.6 10^3/uL (0.8-4.8); Lymphocytes % 9.1 %; Mean Corpuscular HGB Conc 32.1 g/dL (30.0-36.0); Mean Corpuscular Hemoglobin 32.2 pg (28.0-34.0); Mean Corpuscular Volume 100.3 fL (80-94); Mean Platelet Volume 9.7 fL (7.4-10.4); Monocytes # 0.6 10^3/uL (0.2-0.9); Monocytes % 9.2 %; Neutrophils % 77.6 %; Nucleated Red Blood Cells % 0 %; Platelet Count 248 10^3/cmm (130-400); Red Blood Count 3.26 10^6/uL (4.1-5.3); Red Cell Distribution Width 13.5 % (12.1-15.1); White Blood Count 6.1 10^3/uL (4.0-10.0)
== END 2020-08-10 06:24 | disposition home or self-care (01) ==
LOC: ONCMED 06:25
PROVIDERS: PCP Nurse Practitioner; Visit Provider Internal Medicine Hematology & Oncology
DX: D64.9 Anemia, unspecified (principal); Z85.810 Personal history of malignant neoplasm of tongue
CPT/HCPCS: 36415; 85025

== ENCOUNTER 2020-08-11 05:58 | Outpatient (CLI) | payer MEDICARE, SELFPAY ==
--- NOTE | 2020-08-11 10:06 | ONC FU_ITS ---
Dr. Han follow up note Patient: Osman Almanza Unit #: [id number]: 1950 Dicatated By: Latonia Han M.D.Date of Visit:Aug 11, 2020 Onc Med Follow-up/Prog Note History of Present Illness: Mr. Osman Almanza, is a 69-year-old gentleman who was in his usual health until January 2020 when he was diagnosed with left base of tongue CA, p16 positive, nonkeratinizing type squamous cell carcinoma, clinical T4 N2 cM0, was referred to [facility] where he underwent combined chemoradiation with high-dose cisplatin 3 weekly x3 which he completed on June 04, 2020., And on June 10, 2020 he was admitted to [facility] with chills, generalized weakness, oral pain and coughing and his lab work-up done there showed creatinine 1.93, white blood count 1.6 ANC 1200 hemoglobin 8.8 hematocrit and platelets 178,000 patient was treated with IV antibiotics and then recently seen by PMD with progressive anemia and patient was given 2 units of packed RBC with that his follow-up labs done on June 30, 2020 showed white blood count 6 hemoglobin 11 hematocrit 33.7 platelets 360,000., As per patient his follow-up CT scan done at [place] after combined chemoradiation therapy showed excellent response to the treatment with resolution of left basilar tongue lesion but there was incidental finding of lung nodule, now being monitored and scheduled for follow-up CT scan of chest which is to be done today. Patient also has G-tube placement, which is functioning well. And now he has follow-up with speech/physical therapy regarding initiation of oral feeding and once start accepting orally, G-tube will be discontinued. Patient had colonoscopy done in 2007, as per patient it was unremarkable. Patient denies any melena or hematochezia, denies any hemoptysis or hematemesis, denies any jaundice but complaining of dry mouth otherwise no chest pain or shortness of breath no palpitation, no fever or chills. Follow-up CT scan of chest for subcentimeter, bilateral upper lobe pulmonary nodules done on July 27, 2020 showed no increase in size since July 09, 2020, negative on CT PET scan done in March 2020.. Prior granulomatous disease, no enlarging mediastinal or hilar lymph nodes. Came for follow-up, denies any specific complaints except mild dizziness when he stands up but no blurred vision or double vision no fever chills, no nausea or vomiting no chest pain, no shortness of breath no palpitation, patient is undergoing evaluation by speech therapy regarding swallowing and still using G-tube for nutrition. Denies any hemoptysis or hematemesis denies any melena or hematochezia denies any jaundice. Medications: Tamsulosin HCl 1 Tablet (of 0.4 mg) Capsule Oral daily Allergies: No Known Allergies. Review of Systems: Constitutional - Appetite is good and weight is stable. No fever, night sweats, or hot flashes. Energy level is fair, ENMT - No sinus congestion/drainage. No mouth sores. No sore throat or difficulty swallowing, Hematologic/Lymphatic - No abnormal bruising or bleeding, Respiratory - No shortness of breath. No cough. No pleuritic pain or hemoptysis, Cardiovascular - No angina pain. No palpitations, Gastrointestinal - No nausea or vomiting. No heartburn or acid reflux. No diarrhea or constipation. No blood in the stool or black stools, Genitourinary (M) - No dysuria or hematuria. No urinary frequency. No urgency or incontinence, Musculoskeletal - No joint or bone pain, Neurologic - No headache. Positive for dizziness upon standing. No numbness or tingling. No other focal neurologic symptoms, Psychiatric - No anxiety or depression. No insomnia. Vital Signs: Performed on Aug 11, 2020 09:22 Height - 71.00 in Weight - 155.8 lbs (LOW) BSA - 1.90 sq.m BMI - 21.73 Temperature - 97.8 F (LOW) Pulse - 65 /min Respiration - 18 /min BP - 127/75 mm(hg) O2 Sat - 97 % Performance Status: 1 - No physically strenuous activity, but ambulatory and able to carry out light or sedentary work (e.g. office work, light house work). (ECOG) Physical Examination: ENMT - No mouth sores, no thrush, no jaundice, Respiratory - Lungs are clear to auscultation, Cardiovascular - Regular rate and rhythm of heart, Abdomen - Soft, bowel sounds present, G-tube site is clean, Extremities - No visible edema. Lab/Imaging: Test performed on Jul 27, 2020 13:10 Ferritin 1491 ng/mL Folate, Serum > 20.0 ng/mL Iron 47 mcg/dL Vitamin B12 1304 pg/mL Iron Binding Capacity (TIBC) 203 mcg/dl % Iron Saturation 23.1 % UIBC 156 mcg/dL Retic Count % 2.6200 % WBC 6.4 10 3/uL RBC 3.24 10 6/uL HGB 10.2 g/dL HCT 32.6 % MCV 100.6 fL MCH 31.5 pg MCHC 31.3 g/dL RDW 14.8 % Platelet Count 221 10 3/cmm MPV 9.3 fL Neutrophils 4.88 10 3/uL Lymphocytes 0.7 10 3/uL Monocytes 0.7 10 3/uL Eosinophils 0.1 10 3/uL Basophils 0.0 10 3/uL Neutrophil % 76.8 % Lymphocyte % 10.4 % Monocyte % 11.3 % Eosinophil % 0.9 % Basophils % 0.3 % NRBC % 0 % Impression: Macrocytic normochromic anemia etiology unclear could be nutritional as patient is on G-tube feeding since diagnosed with tongue CA, other possibility could be due to chemoradiation or chronic blood loss from chemoradiation induced pharyngitis or considering his age underlying myelodysplasia cannot be ruled out. Status post 2 units of packed RBCs in June 2020 History of left base of tongue CA nonkeratinizing type squamous cell carcinoma p16 positive, T4a, N2C, M0, stage Tameka, status post combined chemoradiation with high-dose cisplatin 3 weekly x3 completed on June 04, 2020 at [facility], as per patient, follow-up CT scan shows excellent response Incidental finding of lung nodule, now being monitored with follow-up CT scan of chest., Follow-up CT scan of chest done on July 27, 2020 showed no increase in size since March 2020 and suggest follow-up in [address] scan of chest. History of smoking 3 pack/year, now quit. Plan: Discussed with patient regarding his labs white blood count 6.1 hemoglobin 10.5 hematocrit 32.7 platelets 248,000 MCV 100.3 is anemia work-up which includes iron studies shows iron saturation 23.1% ferritin 1491, folic acid more than 20, iron 47, TIBC 203 vitamin B12 1304, reticulocyte count 2.62 Clinically, patient is doing well with no new signs symptoms, now recovering from combined chemoradiation done for left base of tongue CA completed on June 04, 2020, patient has seen Dr. Vinson, recently now follow-up CT scan of neck been scheduling next 2 months. As far as bilateral upper lobe pulmonary nodules concerned, patient underwent follow-up CT scan of the chest on July 27, 2020 which showed no increase in size and no mediastinal lymphadenopathy.. So , repeat CT scan of the chest in 6 months was suggested. As far as, mild/moderate macrocytic anemia is concerned, his anemia work-up is inconclusive, his anemia could be multifactorial but hemoglobin is stable, will monitor and repeat CBC in 1 month and if it shows any drop, will consider bone marrow evaluation. Patient was advised to maintain good hydration, that may help his mild dizziness, patient was advised in case there is a worsening of dizziness he need to call us or go to hospital for evaluation. Signed By: Latonia Han M.D. <<Signature on File>>
== END 2020-08-11 05:59 | disposition home or self-care (01) ==
LOC: ONCMED 06:00
PROVIDERS: PCP Nurse Practitioner; Visit Provider Internal Medicine Hematology & Oncology
DX: D64.9 Anemia, unspecified (principal); R91.8 Other nonspecific abnormal finding of lung field; Z85.810 Personal history of malignant neoplasm of tongue; Z93.1 Gastrostomy status; Z92.21 Personal history of antineoplastic chemotherapy; Z92.3 Personal history of irradiation; Z87.891 Personal history of nicotine dependence
CPT/HCPCS: 99214

== ENCOUNTER 2020-08-25 06:00 | Outpatient (RCR) | payer MEDICARE, SELFPAY | END 2020-09-24 23:59 | disposition home or self-care (01) | LOC: TST 06:00 | PROVIDERS: PCP Nurse Practitioner; Referring Provider Nurse Practitioner; Visit Provider Nurse Practitioner | DX: R13.12 Dysphagia, oropharyngeal phase (principal) | CPT/HCPCS: 92526 ==

== ENCOUNTER 2020-09-01 09:28 | Outpatient (CLI) | payer MEDICARE, SELFPAY ==
--- NOTE | 2020-09-01 09:59 | MR_ITS ---
WS: [id number] INDICATION: Neoplasm TECHNIQUE: MRI of the neck without and with gadolinium enhancement. Axial T1 and T2 coronal T1 león l T2 coronal STIR sagittal T2 imaging FINDINGS: Comparison CT neck July 09, 2020 and PET/CT April 02, 2020 .prior MRI March 04, 2020 Previously described large enhancing neoplasm at the right tongue base extending to involve the epigl ottis has essentially resolved. Findings consistent with interval response to therapy. No evidence of measurable residual or recurrent neoplasm. Findings consistent with interval response to therapy. Edema within the hypopharynx and supraglottic pharyngeal soft tissues consistent with treatment-related changes. Edema within the vocal cords and v ocal folds. Small amount of fluid in the retropharyngeal space. Normal parapharyngeal fat. Mild edema in the epiglottis. Subglottic airway is normal. Normal parotid glands and submandibular glands. No cervical lymphadenopathy visualized today. Mild spondylitic moreno es cervical spine.Loss of the right jugular vein flow void suspicious for thrombus. This can be furth er evaluated with ultrasound MR/[place] [id number] IMPRESSION: Gadolinium was not administered. 1. Previously described tongue base neoplasm has essentially resolved with pos t therapeutic changes. 2. Findings compatible with interval response to therapy. 3. Mild edema in the hypopharynx and supraglottic soft tissues consistent with treatment-related changes. 4. Tiny amount of fluid in the retropharyngeal space. 5. No visualized cervical lymphadenopathy today. 6. Loss of the right jugular vein flow void suspicious for thrombus. This can be further evaluated with ultrasound. This is unchanged since the prior neck CT .
== END 2020-09-01 09:29 | disposition home or self-care (01) ==
LOC: RADWPI 09:31
PROVIDERS: PCP Nurse Practitioner; Visit Provider Specialist
DX: C01 Malignant neoplasm of base of tongue (principal); R60.0 Localized edema
CPT/HCPCS: 70336

== ENCOUNTER 2020-09-09 13:52 | Outpatient (CLI) | payer MEDICARE, SELFPAY ==
--- NOTE | 2020-09-09 14:08 | US_ITS ---
WS: [id number] ULTRASOUND SOFT TISSUES RIGHT neck HISTORY: LOCALIZED SWELLING, MASS AND LUMP NECK, no history of surgery. Tongue base carcinoma. COMPARISON: MRI 09/01/2020 TECHNIQUE: 2-D and color Doppler imaging is submitted. Hypoechoic soft tissue mass in the area of concern. There is no increased vascularity. Soft tissue ma ss is very hypoechoic and just anterior to the jugular vein. Mass measures 1.6 x 0.8 cm. US/US soft tissue head neck [id number] IMPRESSION: Palpable area in the RIGHT neck corresponds to 1.6 x 0.8 cm and is very low ech ogenicity. No increased vascularity. This may be an area of fibrosis and scarri ng from the prior radiation. Recommend continued follow-up. If this mass contin ues to enlarge may be residual neoplastic disease.
== END 2020-09-09 13:53 | disposition home or self-care (01) ==
LOC: US 13:58
PROVIDERS: PCP Nurse Practitioner; Visit Provider Specialist
DX: R22.1 Localized swelling, mass and lump, neck (principal)
CPT/HCPCS: 76536

== ENCOUNTER 2020-09-09 14:00 | Outpatient (CLI) | payer MEDICARE, SELFPAY ==
[2020-09-09 15:22] LABS: Basophils % 0.3 %; Eosinophils # 0.1 10^3/uL (0.0-0.8); Eosinophils % 1.5 %; Hematocrit 34.7 % (42.0-52.0); Hemoglobin 10.8 g/dL (11.7-16.6); Lymphocytes # 0.5 10^3/uL (0.8-4.8); Lymphocytes % 8.5 %; Mean Corpuscular HGB Conc 31.1 g/dL (30.0-36.0); Mean Platelet Volume 9.7 fL (7.4-10.4); Monocytes # 0.6 10^3/uL (0.2-0.9); Monocytes % 9.3 %; Neutrophils % 79.9 %; Nucleated Red Blood Cells % 0 %; Platelet Count 215 10^3/cmm (130-400); Red Blood Count 3.37 10^6/uL (4.1-5.3); White Blood Count 5.9 10^3/uL (4.0-10.0)
== END 2020-09-09 14:01 | disposition home or self-care (01) ==
PROVIDERS: PCP Nurse Practitioner; Visit Provider Internal Medicine Hematology & Oncology
DX: D64.9 Anemia, unspecified (principal); Z85.810 Personal history of malignant neoplasm of tongue
CPT/HCPCS: 85025

== ENCOUNTER 2020-09-10 14:47 | Outpatient (CLI) | payer MEDICARE, SELFPAY ==
--- NOTE | 2020-09-10 16:42 | ONC FU_ITS ---
Dr. Han follow up note Patient: Osman Almanza Unit #: [id number]: 1950 Dicatated By: Latonia Han M.D.Date of Visit:Sep 10, 2020 Onc Med Follow-up/Prog Note History of Present Illness: Mr. Osman Almanza, is a 69-year-old gentleman who was in his usual health until January 2020 when he was diagnosed with left base of tongue CA, p16 positive, nonkeratinizing type squamous cell carcinoma, clinical T4 N2 cM0, was referred to [facility] where he underwent combined chemoradiation with high-dose cisplatin 3 weekly x3 which he completed on June 04, 2020., And on June 10, 2020 he was admitted to [facility] with chills, generalized weakness, oral pain and coughing and his lab work-up done there showed creatinine 1.93, white blood count 1.6 ANC 1200 hemoglobin 8.8 hematocrit and platelets 178,000 patient was treated with IV antibiotics and then recently seen by PMD with progressive anemia and patient was given 2 units of packed RBC with that his follow-up labs done on June 30, 2020 showed white blood count 6 hemoglobin 11 hematocrit 33.7 platelets 360,000., As per patient his follow-up CT scan done at [place] after combined chemoradiation therapy showed excellent response to the treatment with resolution of left basilar tongue lesion but there was incidental finding of lung nodule, now being monitored and scheduled for follow-up CT scan of chest which is to be done today. Patient also has G-tube placement, which is functioning well. And now he has follow-up with speech/physical therapy regarding initiation of oral feeding and once start accepting orally, G-tube will be discontinued. Patient had colonoscopy done in 2007, as per patient it was unremarkable. Patient denies any melena or hematochezia, denies any hemoptysis or hematemesis, denies any jaundice but complaining of dry mouth otherwise no chest pain or shortness of breath no palpitation, no fever or chills. Follow-up CT scan of chest for subcentimeter, bilateral upper lobe pulmonary nodules done on July 27, 2020 showed no increase in size since July 09, 2020, negative on CT PET scan done in March 2020.. Prior granulomatous disease, no enlarging mediastinal or hilar lymph nodes. Follow-up CT scan of neck ordered by Dr. Vinson, done on September 01, 2020 showed previously described tongue base neoplasm has essentially resolved. Loss of right jugular vein flow void suspicious for thrombosis, ultrasound was recommended which was done on September 09, 2020 it showed soft tissue mass is very hypoechoic and just anterior to the jugular vein measure 1.6 x 0.8 cm could be fibrosis or scarring from the prior radiation therapy Came for follow-up, denies any specific complaint except off-and-on feel dizzy which is a chronic problem for him and tolerating orally well but using G-tube most of the time. No dysphagia, no nausea or vomiting.no diarrhea or constipation, no fever or chills denies any palpitation denies any chest pain denies any shortness of breath denies any blurred vision or double vision denies any earache. Medications: Tamsulosin HCl 1 Tablet (of 0.4 mg) Capsule Oral daily Allergies: No Known Allergies. Review of Systems: Constitutional - Appetite is good and weight is stable. No fever, night sweats, or hot flashes. Energy level is fair, ENMT - No sinus congestion/drainage. No mouth sores. Positive for sore throat or difficulty swallowing, Hematologic/Lymphatic - No abnormal bruising or bleeding, Respiratory - No shortness of breath. No cough. No pleuritic pain or hemoptysis, Cardiovascular - No angina pain. No palpitations, Gastrointestinal - No nausea or vomiting. No heartburn or acid reflux. No diarrhea or constipation. No blood in the stool or black stools, Genitourinary (M) - No dysuria or hematuria. No urinary frequency. No urgency or incontinence, Musculoskeletal - No joint or bone pain, Neurologic - No headache. Positive for dizziness upon standing. No numbness or tingling. No other focal neurologic symptoms, Psychiatric - No anxiety or depression. No insomnia. Vital Signs: Performed on Sep 10, 2020 15:53 Height - 71.00 in Weight - 157.4 lbs (HIGH) BSA - 1.90 sq.m BMI - 21.95 Temperature - 98.5 F Pulse - 79 /min Respiration - 16 /min BP - 140/68 mm(hg) O2 Sat - 97 % Pain - 0 Performance Status: 1 - No physically strenuous activity, but ambulatory and able to carry out light or sedentary work (e.g. office work, light house work). (ECOG) Physical Examination: ENMT - No mouth sores, no thrush, no jaundice, post chemoradiation changes in the neck, Respiratory - Lungs are clear to auscultation, Cardiovascular - Regular rate and rhythm of heart, Abdomen - Soft, bowel sounds present, Extremities - No visible edema. Lab/Imaging: Test performed on Aug 10, 2020 14:21 WBC 6.1 10 3/uL RBC 3.26 10 6/uL HGB 10.5 g/dL HCT 32.7 % MCV 100.3 fL MCH 32.2 pg MCHC 32.1 g/dL RDW 13.5 % Platelet Count 248 10 3/cmm MPV 9.7 fL Neutrophils 4.70 10 3/uL Lymphocytes 0.6 10 3/uL Monocytes 0.6 10 3/uL Eosinophils 0.1 10 3/uL Basophils 0.0 10 3/uL Neutrophil % 77.6 % Lymphocyte % 9.1 % Monocyte % 9.2 % Eosinophil % 2.3 % Basophils % 0.3 % NRBC % 0 % Test performed on Jul 27, 2020 13:10 Ferritin 1491 ng/mL Folate, Serum > 20.0 ng/mL Iron 47 mcg/dL Vitamin B12 1304 pg/mL Iron Binding Capacity (TIBC) 203 mcg/dl % Iron Saturation 23.1 % UIBC 156 mcg/dL Retic Count % 2.6200 % Impression: Macrocytic normochromic anemia etiology unclear could be nutritional as patient is on G-tube feeding since diagnosed with tongue CA, other possibility could be due to chemoradiation or chronic blood loss from chemoradiation induced pharyngitis or considering his age underlying myelodysplasia cannot be ruled out. Status post 2 units of packed RBCs in June 2020 History of left base of tongue CA nonkeratinizing type squamous cell carcinoma p16 positive, T4a, N2C, M0, stage Tameka, status post combined chemoradiation with high-dose cisplatin 3 weekly x3 completed on June 04, 2020 at [facility], as per patient, follow-up CT scan shows excellent response Incidental finding of lung nodule, now being monitored with follow-up CT scan of chest., Follow-up CT scan of chest done on July 27, 2020 showed no increase in size since March 2020 and suggest follow-up in [address] scan of chest. History of smoking 3 pack/year, now quit. Plan: Discussed with patient regarding his labs white blood count 6.1 hemoglobin 10.5 hematocrit 32.7 platelets 248,000 iron saturation 23.1% ferritin 1491 folate more than 20 iron 47 TIBC 203 vitamin B12 1304, reticulocyte count 2.6 Clinically, patient is doing reasonably well, now recovering from combined chemoradiation therapy done for CA tongue. As per patient he has seen Dr. Vinson lately and underwent CT scan of the neck on September 01, 2020 which showed no evidence of recurrence of disease. He is scheduled to see Dr. Vinson tomorrow for follow-up and then will discuss with him regarding switching from G-tube feeding to orally. As far as mild macrocytic anemia is concerned, his anemia work-up was inconclusive so considering his age could be due to underlying myelodysplasia or chemoradiation induced, his follow-up CBC shows some improvement in his hemoglobin, will continue to monitor he will return to clinic in 2 months with CBC CMP if his anemia persist, may consider bone marrow evaluation to rule out underlying myelodysplasia. As far as mild dizziness is concerned, could be due to mild dehydration, as there was a slight drop in his blood pressure from 131/86 while sitting and down to 122/70 when standing, patient was offered IV fluids but declined rather consider hydration through G-tube as patient said he is not symptomatic all the time it just happen off and on. Patient was advised in case there is a worsening of symptoms, he need to call us or go to the emergency room or contact his PMD. Signed By: Latonia Han M.D. <<Signature on File>>
== END 2020-09-10 14:48 | disposition home or self-care (01) ==
LOC: ONCMED 14:52
PROVIDERS: PCP Nurse Practitioner; Visit Provider Internal Medicine Hematology & Oncology
DX: D53.9 Nutritional anemia, unspecified (principal); Z85.810 Personal history of malignant neoplasm of tongue; Z97.8 Presence of other specified devices; R42 Dizziness and giddiness; Z92.21 Personal history of antineoplastic chemotherapy; Z92.3 Personal history of irradiation
CPT/HCPCS: 99214

== ENCOUNTER 2020-09-23 11:02 | Outpatient (CLI) | payer MEDICARE, SELFPAY ==
--- NOTE | 2020-09-23 | USCV_ITS ---
Osman lAmanza Age: 69 Gender: M : 1950 Exam Date: 09/23/2020 11:09 Ordering Phys: Nishant Vinson MD Technologist: Nancy Morse Exam Location: [facility] – [place] Indication: LTD STUDY TO REEXAMINE RT JUGULAR VEIN. HISTORY: See exam done 09-09-2020. Re examining the Rt. Jugular for DVT PROCEDURES: Venous Duplex imaging was performed in the Rt. Jugular Vein Rt. Subclavian Vein and Rt. Ax. vein. FINDINGS: The Rt. Jugular vein appears to contain debris and no flow. CONCLUSIONS Persistent Right IJ thrombus unchanged. Right subclavian and axillary vein patent. Comp 09/09/2020 Colin Denton MD (Electronically Signed) Final Date: 23 September 2020 16:37 S
== END 2020-09-23 11:03 | disposition home or self-care (01) ==
LOC: US 11:02
PROVIDERS: PCP Nurse Practitioner; Visit Provider Specialist
DX: I82.C11 Acute embolism and thrombosis of right internal jugular vein (principal)
CPT/HCPCS: 93971

== ENCOUNTER 2020-09-25 06:00 | Outpatient (RCR) | payer MEDICARE, SELFPAY | END 2020-10-25 23:59 | disposition home or self-care (01) | LOC: TST 06:00 | PROVIDERS: PCP Nurse Practitioner; Referring Provider Nurse Practitioner; Visit Provider Nurse Practitioner | DX: C01 Malignant neoplasm of base of tongue (principal); R13.12 Dysphagia, oropharyngeal phase | CPT/HCPCS: 92526 ==

== ENCOUNTER 2020-10-26 06:00 | Outpatient (RCR) | payer MEDICARE, SELFPAY | END 2020-11-22 23:59 | disposition home or self-care (01) | LOC: TST 06:00 | PROVIDERS: PCP Nurse Practitioner; Referring Provider Nurse Practitioner; Visit Provider Nurse Practitioner | DX: R13.12 Dysphagia, oropharyngeal phase (principal) | CPT/HCPCS: 92526 ==

== ENCOUNTER 2020-12-02 08:50 | Outpatient (CLI) | payer MEDICARE, SELFPAY ==
[2020-12-02 09:21] LABS: Basophils % 0.2 %; Eosinophils # 0.1 10^3/uL (0.0-0.8); Eosinophils % 0.9 %; Hematocrit 36.1 % (42.0-52.0); Hemoglobin 11.4 g/dL (11.7-16.6); Lymphocytes # 0.6 10^3/uL (0.8-4.8); Lymphocytes % 10.2 %; Mean Corpuscular HGB Conc 31.6 g/dL (30.0-36.0); Mean Corpuscular Hemoglobin 31.8 pg (28.0-34.0); Mean Corpuscular Volume 100.6 fL (80-94); Mean Platelet Volume 9.4 fL (7.4-10.4); Monocytes # 0.3 10^3/uL (0.2-0.9); Monocytes % 5.8 %; Neutrophils # 4.54 10^3/uL (1.8-7.7); Neutrophils % 82.5 %; Nucleated Red Blood Cells % 0 %; Platelet Count 172 10^3/cmm (130-400); Red Blood Count 3.59 10^6/uL (4.1-5.3); Red Cell Distribution Width 12.2 % (12.1-15.1); White Blood Count 5.5 10^3/uL (4.0-10.0)
[2020-12-02 09:44] LABS: Alanine Aminotransferase 18 U/L (0-41); Alkaline Phosphatase 54 IU/L (40-130); Anion Gap 14.1 (5-19); Aspartate Amino Transferase 24 U/L (0-40); Blood Urea Nitrogen 21 mg/dL (8-23); Calcium 9.4 mg/dL (8.5-10.5); Carbon Dioxide 25 mmol/L (22-29); Chloride 105 mmol/L (98-107); Globulin 2.8 g/dL (1.3-4.6); Glomerular Filtration Rate 37.8 mL/min (90-130); Glucose 95 mg/dL (65-115); Osmolality Calculated 293 mOsm/kg (285-295); Potassium 4.1 mmol/L (3.5-5.1); Sodium 140 mmol/L (136-145); Total Bilirubin 0.3 mg/dL (0.15-1.2); Total Protein 6.8 g/dL (6.6-8.7)
--- NOTE | 2020-12-13 20:22 | ONC FU_ITS ---
[facility] Patient Note Patient: Osman Almanza Unit #: [id number]: 1950 Dictated By: Linden BlackburnDate of Visit: Dec 02, 2020 Onc MED Follow-Up/Prog Note Chief Complaint: Anemia Left base of tongue CA diagnosed in January 2020 status post combined chemoradiation with high-dose cisplatin completed on June 04, 2020 at [place] History of Present Illness: Mr. Almanza is a 69-year-old gentleman who was in his usual health until January 2020. He was diagnosed with left base of tongue CA, p16 positive, nonkeratinizing type squamous cell carcinoma, clinical T4 N2 cM0. He was referred to [facility] where he underwent combined chemoradiation with high-dose cisplatin 3 weekly x3 which he completed on June 04, 2020. On June 10, 2020, he was admitted to [facility] with chills, generalized weakness, oral pain and coughing. His lab work-up showed creatinine 1.93, white blood count 1.6 ANC 1200 hemoglobin 8.8 hematocrit and platelets 178,000. He was treated with IV antibiotics. Mr Almanza was seen by PMD with progressive anemia and was given 2 units of packed RBC. His follow-up labs done on June 30, 2020 showed white blood count 6 hemoglobin 11 hematocrit 33.7 platelets 360,000., As per patient, his follow-up CT scan done at [place] (after combined chemoradiation therapy) showed excellent response to the treatment with resolution of left basilar tongue lesion. However, there was incidental finding of lung nodule, now being monitored. He was scheduled for follow-up CT scan of chest. Follow-up CT scan of chest for subcentimeter, bilateral upper lobe pulmonary nodules done on July 27, 2020 showed no increase in size since July 09, 2020, negative on CT PET scan done in March 2020.. Prior granulomatous disease, no enlarging mediastinal or hilar lymph nodes. Mr Almanza also had G-tube placement, which was functioning well. He did havefollow-up with speech/physical therapy regarding initiation of oral feeding. He reports his tube fell ouit in October 2020 and he has been eating well without it. He reports his colonscopoy from 2007 was unremarkable. Mr. Almanza is here today for follow-up. He states overall he is doing well. He states that he feels really good. He states that he is feeling okay . He states he still has some problems once in a while but overall it is so much better and improving. He states his energy is good. He denies any new concerns. He states he is starting to feel more like himself. He denies any diarrhea or constipation. He denies any neuropathy or hearing changes. He denies any nausea or vomiting. His ECOG is 1. Past Medical History: Mr. Almanza's medical history is unremarkable. Past Surgical History: G tube placement in 2019 Central line placement in 2019 Allergies: No Known Allergies. Medications: Tamsulosin HCl 1 Tablet (of 0.4 mg) Capsule Oral daily Xarelto 1 Tablet (of 20 mg) Oral daily Family History: The family history is unremarkable. Social History: Mr. Almanza is and he is an unknown. Mr. Almanza no longer smokes. He has no history of drinking. Review Of Symptoms: Constitutional Denies fevers, chills, night sweats, excessive fatigue or weight loss. Allergic/Immunologic No reactions. Eyes Denies significant visual changes. No diplopia. No amaurosis. ENMT Denies changes in hearing, sore throat, mouth sores, difficulty or changes in swallowing ability, and/or sinus drainage. Hematologic/Lymphatic Denies easy bruising or bleeding. The patient denies any tender or palpable lymph nodes. Respiratory Denies dyspnea on exertion, chest pain, cough or hemoptysis. Denies orthopnea. Cardiovascular Denies anginal chest pain, palpitations or orthopnea. Gastrointestinal Denies nausea, vomiting, diarrhea, GI bleeding, or constipation. Denies change in bowel habits and/or stool color, no heartburn or early satiety. Genitourinary (M) Denies hematuria, dysuria, increased frequency, urgency, hesitancy or incontinence. Musculoskeletal Denies joint pain, swelling or redness. No decreased range of motion. Integumentary Denies chronic rashes, inflammation, ulcerations or skin changes. Neurologic Denies headache, blurred vision, and no areas of focal weakness or numbness. Normal gait. No sensory problems. Psychiatric Denies insomnia, depression, joanna or mood swings. Vital Signs: Performed on Dec 02, 2020 10:56 Height - 71.00 in Weight - 157.8 lbs (HIGH) BSA - 1.91 sq.m BMI - 22.01 Temperature - 97.8 F (LOW) Pulse - 66 /min Respiration - 19 /min BP - 141/80 mm(hg) (HIGH) O2 Sat - 98 % Pain - 0,0 - Fully active, able to carry on all predisease activities without restrictions. (ECOG) Physical Examination: Constitutional Alert, oriented, no acute distress. Skin pink, warm and dry. Head Normocephalic; atraumatic. Eyes Conjunctivae and sclerae are clear and without icterus. Pupils are reactive and equal. ENMT No oral exudates, ulcers, masses, thrush or mucositis. Oropharynx clear. Tongue normal. Neck Supple without masses or thyromegaly. No jugular venous distension. Hematologic/Lymphatic No petechiae or purpura. No tender or palpable lymph nodes in the cervical or supraclavicular areas. Respiratory Lungs are clear to auscultation without rhonchi or wheezing. Cardiovascular Regular rate and rhythm of heart without murmurs,clicks, gallops or rubs. Abdomen Non-tender, non-distended, no masses or ascites. Good bowel sounds noted in all quads. No guarding or rebound tenderness. No pulsatile masses. Back/Spine Non-tender to palpation. Extremities No visible deformities, no cyanosis, clubbing or edema. Musculoskeletal No tenderness or swelling, normal range of motion without obvious weakness. Integumentary No rashes or lesions. Neurologic No sensory or motor deficits, normal cerebellar function, normal gait. Psychiatric Alert and oriented times three. Coherent speech. Verbalizes understanding of our discussions today. Laboratory:Test performed on Dec 02, 2020 09:03 Sodium 140 mmol/L Potassium 4.1 mmol/L Chloride 105 mmol/L CO2 25 mmol/L Anion Gap 14.1 BUN 21 mg/dL Creatinine 1.8 mg/dL Cr Clearance (Est) 40.32 mL/min eGFR 37.8 mL/min Glucose 95 mg/dL Osmolality - Calculated 293 mOsm/kg Calcium 9.4 mg/dL Protein, Total 6.8 g/dL Albumin 4.0 g/dL Globulin 2.8 g/dL Bilirubin, Total 0.3 mg/dL ALT (SGPT) 18 U/L AST (SGOT) 24 U/L Alkaline Phosphatase 54 IU/L WBC 5.5 10 3/uL RBC 3.59 10 6/uL HGB 11.4 g/dL HCT 36.1 % MCV 100.6 fL MCH 31.8 pg MCHC 31.6 g/dL RDW 12.2 % Platelet Count 172 10 3/cmm MPV 9.4 fL Neutrophils 4.54 10 3/uL Lymphocytes 0.6 10 3/uL Monocytes 0.3 10 3/uL Eosinophils 0.1 10 3/uL Basophils 0.0 10 3/uL Neutrophil % 82.5 % Lymphocyte % 10.2 % Monocyte % 5.8 % Eosinophil % 0.9 % Basophils % 0.2 % NRBC % 0 % Test performed on Jul 27, 2020 13:10 Ferritin 1491 ng/mL Folate, Serum > 20.0 ng/mL Iron 47 mcg/dL Vitamin B12 1304 pg/mL Iron Binding Capacity (TIBC) 203 mcg/dl % Iron Saturation 23.1 % UIBC 156 mcg/dL Retic Count % 2.6200 % Impression: Macrocytic normochromic anemia etiology unclear could be nutritional as patient is on G-tube feeding since diagnosed with tongue CA, other possibility could be due to chemoradiation or chronic blood loss from chemoradiation induced pharyngitis or considering his age underlying myelodysplasia cannot be ruled out. Status post 2 units of packed RBCs in June 2020 History of left base of tongue CA nonkeratinizing type squamous cell carcinoma p16 positive, T4a, N2C, M0, stage Tameka, status post combined chemoradiation with high-dose cisplatin 3 weekly x3 completed on June 04, 2020 at [facility], as per patient, follow-up CT scan shows excellent response Incidental finding of lung nodule, now being monitored with follow-up CT scan of chest., Follow-up CT scan of chest done on July 27, 2020 showed no increase in size since March 2020 and suggest follow-up in [address] scan of chest. History of smoking 3 pack/year, now quit. Plan: PROBLEMS ADDRESSED TODAY 1. Cancer of the tongue A. He did have combined chemoradiation with high-dose cisplatin completed on June 04, 2020 at [place]. He has had no sign of disease recurrence/progression he does have incidental finding of a lung nodule on follow-up CT of the chest which is being monitored. His follow-up scan of the chest from August 26, 2020 showed no increase compared to March 2020. He will be due for a 6-month follow-up CT of the chest in January 2021. B. He states that his feeding tube fell out in October . He has been swallowing well and maintaining his weight without the feeding tube. 2. mild macrocytic anemia A. His anemia work-up was inconclusive and per Dr Han's last office note so considering his age could be due to underlying myelodysplasia or chemoradiation induced . B. His follow-up CBCs some improvement in his hemoglobin. His hemoglobin today is 11.4 compared to 10.2 on July 27, 2020. C. Today's labs reviewed in detail discussed with Mr. Julien and a copy was given to him. WBC 5.5, hemoglobin 11.4, platelets 172,000 ANC is 4540. His creatinine is noted to be 1.8 today random glucose 95 potassium 4.1 LFTs are normal. 3. Blood clot in my neck A. Mr. Almanza had an ultrasound soft tissue head and neck on 09/09/2020. There was a hypoechoic soft tissue mass in the area of concern. There was no increased vascularity. Soft tissue mass was very hypoechoic it was felt it could be an area of fibrosis or scarring from prior radiation. There was recommended follow-up and he then had a venous Doppler of the upper right extremity on 09/23/2020 which reported persistent right internal jugular thrombus unchanged. Right subclavian and axillary vein were patent. B. He was started on Xarelto starter pack at 50 mg twice daily on October 01, 2020. He is currently on 20 mg daily. 4. Elevated creatinine A. Mr. Almanza's creatinine today is 1.8. His creatinine in June 2020 was 1.5. B. He states he is due to see his primary care provider, Courtney Bernard in a couple of weeks. I have asked to recheck his creatinine at that time. I did speak directly with clinic and she is aware of his elevated creatinine today. 5. Follow-up plan A. Mr. Almanza request follow-up in 3 months with [facility] CMP. He states he will contact us in the interim should questions or problems arise. 55 minutes was spent in review of patient's records prior to his visit; conducting his follow-up visit as well as post visit documentation. Signed By: Linden Blackburn-, AOCNP Latonia Han MD <<Signature on File>>
== END 2020-12-02 08:51 | disposition home or self-care (01) ==
LOC: ONCMED 08:55
PROVIDERS: PCP Nurse Practitioner; Visit Provider Nurse Practitioner
DX: Z08 Encounter for follow-up examination after completed treatment for malignant neoplasm (principal); Z85.810 Personal history of malignant neoplasm of tongue; R91.1 Solitary pulmonary nodule; D53.9 Nutritional anemia, unspecified; I82.C11 Acute embolism and thrombosis of right internal jugular vein; R79.89 Other specified abnormal findings of blood chemistry; Z79.01 Long term (current) use of anticoagulants; Z92.21 Personal history of antineoplastic chemotherapy
CPT/HCPCS: 36415; 80053; 85025; 99215

== ENCOUNTER 2020-12-17 12:25 | Outpatient (CLI) | payer MEDICARE, SELFPAY ==
--- NOTE | 2020-12-17 12:45 | USCV_ITS ---
Osman Almanza Age: 69 Gender: M : 1950 Exam Date: 12/17/2020 12:52 Ordering Phys: Courtney Bernard Technologist: Ana Valentin [place] [facility] [place]: HX JUG OCCLUSION RT HISTORY: RADIATION, CHEMO, RECENT BLOOD THINNERS PROCEDURES: Venous duplex imaging was performed in only the right upper extremity. The following venous structures were evaluated: internal jugular vein, subclavian vein, axillary vein, and brachial veins. In addition, the basilic vein, cephalic vein, radial vein, and ulnar vein. FINDINGS: Jugular still appears to be occluded. All others appear patent. 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 The other above-mentioned veins were found to be patent with no evidence of thrombosis Compared to the study from September 23, 2020, there may not be a significant change Dr Russell Wild MD [facility] (Electronically Signed) Final Date: 18 December 2020 19:09 S
== END 2020-12-17 12:26 | disposition home or self-care (01) ==
LOC: RAD 12:28
PROVIDERS: PCP Nurse Practitioner; Visit Provider Nurse Practitioner
DX: I82.C11 Acute embolism and thrombosis of right internal jugular vein (principal)
CPT/HCPCS: 93971

== ENCOUNTER 2021-03-01 10:14 | Outpatient (CLI) | payer MEDICARE, SELFPAY ==
--- NOTE | 2021-03-01 10:41 | ECG_ITS ---
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 Measurements Intervals Holden Rate: 66 P: 25 AL: 137 QRS: 75 QRSD: 74 T: 75 QT: 383 QTc: 403 Interpretive Statements SINUS RHYTHM Compared to ECG 06/26/2020 23:31:26 No significant changes Electronically Signed On 03-01-2021 12:36:16 CDT by Joaquin Olsen M.D. [id number]
[2021-03-01 10:51] LABS: Basophils % 0.3 %; Eosinophils # 0.1 10^3/uL (0.0-0.8); Eosinophils % 0.9 %; Hematocrit 35.5 % (42.0-52.0); Hemoglobin 11.6 g/dL (11.7-16.6); Lymphocytes # 0.4 10^3/uL (0.8-4.8); Lymphocytes % 6.3 %; Mean Corpuscular HGB Conc 32.7 g/dL (30.0-36.0); Mean Corpuscular Hemoglobin 31.3 pg (28.0-34.0); Mean Corpuscular Volume 95.7 fL (80-94); Mean Platelet Volume 9.2 fL (7.4-10.4); Monocytes # 0.4 10^3/uL (0.2-0.9); Monocytes % 6.3 %; Neutrophils # 5.74 10^3/uL (1.8-7.7); Neutrophils % 85.8 %; Nucleated Red Blood Cells % 0 %; Platelet Count 188 10^3/cmm (130-400); Red Blood Count 3.71 10^6/uL (4.1-5.3); Red Cell Distribution Width 13.3 % (12.1-15.1); White Blood Count 6.7 10^3/uL (4.0-10.0)
[2021-03-01 11:15] LABS: Anion Gap 14.1 (5-19); Blood Urea Nitrogen 28 mg/dL (8-23); Calcium 8.9 mg/dL (8.5-10.5); Carbon Dioxide 29 mmol/L (22-29); Chloride 104 mmol/L (98-107); Glomerular Filtration Rate 40.3 mL/min (90-130); Glucose 90 mg/dL (65-115); Osmolality Calculated 301 mOsm/kg (285-295); Potassium 4.1 mmol/L (3.5-5.1); Sodium 143 mmol/L (136-145)
== END 2021-03-01 10:15 | disposition home or self-care (01) ==
LOC: RAD 10:20 → RT 10:43
PROVIDERS: PCP Nurse Practitioner; Visit Provider Specialist
DX: C01 Malignant neoplasm of base of tongue (principal); Z01.810 Encounter for preprocedural cardiovascular examination
CPT/HCPCS: 36415; 80048; 85025; 93005

== ENCOUNTER → 2021-03-30 11:04 | Outpatient (BNVA) | payer MEDICARE, SELFPAY | PROVIDERS: PCP Nurse Practitioner; Visit Provider Internal Medicine Hematology & Oncology | DX: Z85.810 Personal history of malignant neoplasm of tongue (principal) | CPT/HCPCS: 80053; 85025 ==

== ENCOUNTER 2021-03-31 05:57 | Outpatient (CLI) | payer MEDICARE, SELFPAY ==
--- NOTE | 2021-03-31 17:37 | ONC FU_ITS ---
Dr. Han follow up note Patient: Osman Almanza Unit #: [id number]: 1950 Dicatated By: Latonia Han M.D.Date of Visit:Mar 31, 2021 Onc Med Follow-up/Prog Note History of Present Illness: Mr. Almanza is a 70-year-old gentleman who was in his usual health until January 2020. He was diagnosed with left base of tongue CA, p16 positive, nonkeratinizing type squamous cell carcinoma, clinical T4 N2 cM0. He was referred to [facility] where he underwent combined chemoradiation with high-dose cisplatin 3 weekly x3 which he completed on June 04, 2020. On June 10, 2020, he was admitted to [facility] with chills, generalized weakness, oral pain and coughing. His lab work-up showed creatinine 1.93, white blood count 1.6 ANC 1200 hemoglobin 8.8 hematocrit and platelets 178,000. He was treated with IV antibiotics. Mr Almanza was seen by PMD with progressive anemia and was given 2 units of packed RBC. His follow-up labs done on June 30, 2020 showed white blood count 6 hemoglobin 11 hematocrit 33.7 platelets 360,000., As per patient, his follow-up CT scan done at [place] (after combined chemoradiation therapy) showed excellent response to the treatment with resolution of left basilar tongue lesion. However, there was incidental finding of lung nodule, now being monitored. He was scheduled for follow-up CT scan of chest. Follow-up CT scan of chest for subcentimeter, bilateral upper lobe pulmonary nodules done on July 27, 2020 showed no increase in size since July 09, 2020, negative on CT PET scan done in March 2020.. Prior granulomatous disease, no enlarging mediastinal or hilar lymph nodes. Mr Almanza also had G-tube placement, which was functioning well. He did havefollow-up with speech/physical therapy regarding initiation of oral feeding. He reports his tube fell ouit in October 2020 and he has been eating well without it. He reports his colonscopoy from 2007 was unremarkable. Came for follow-up, denies any specific complaints, no fever chills, no nausea or vomiting, no diarrhea constipation, as per patient he was evaluated by Dr. Vinson, about 2 weeks ago at that time he underwent CT scan of neck as well as biopsy of throat lesion which came back negative. 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 Otherwise no hemoptysis or hematemesis, no jaundice, no abdominal pain, no dysphagia, no recurrent pneumonia. Medications: Tamsulosin HCl 1 Tablet (of 0.4 mg) Capsule Oral daily, Xarelto 1 Tablet (of 20 mg) Oral daily Allergies: No Known Allergies. Review of Systems: Review of Systems is not available for this patient. Vital Signs: Performed on Mar 31, 2021 08:13 Height - 71.00 in Weight - 148.8 lbs (LOW) BSA - 1.86 sq.m BMI - 20.75 Temperature - 97.8 F (LOW) Pulse - 58 /min (LOW) Respiration - 18 /min BP - 139/79 mm(hg) O2 Sat - 99 % Pain - 0 Fatigue - 0 Performance Status: 0 - Fully active, able to carry on all predisease activities without restrictions. (ECOG) Physical Examination: ENMT - No mouth sores, no thrush, no jaundice, post chemoradiation changes in the neck, Respiratory - Lungs are clear to auscultation, Cardiovascular - Regular rate and rhythm of heart, Abdomen - Soft, bowel sounds present, Extremities - No visible edema. Lab/Imaging: Test performed on Mar 30, 2021 11:04 Sodium 144 mmol/L Potassium 4.9 mmol/L Chloride 106 mmol/L CO2 27 mmol/L Anion Gap 15.9 BUN 26 mg/dL Creatinine 1.8 mg/dL Cr Clearance (Est) 37.50 mL/min Glucose 92 mg/dL Osmolality - Calculated 302 mOsm/kg Calcium 9.6 mg/dL Protein, Total 6.3 g/dL Albumin 4.3 g/dL Globulin 2.0 g/dL Bilirubin, Total 0.3 mg/dL ALT (SGPT) 13 Units/L AST (SGOT) 20 Units/L Alkaline Phosphatase 62 IU/L WBC 6.1 10^3/uL RBC 3.71 10^6/uL HGB 11.6 g/dL HCT 37.1 % MCV 100.0 fl MCH 31.3 pg MCHC 31.3 g/dL RDW 13.5 % Platelet Count 216 10^3/uL MPV 9.9 fl Neutrophils 4.77 10^3/uL Lymphocytes 0.8 10^3/uL Monocytes 0.4 10^3/uL Eosinophils 0.1 10^3/uL Basophils 0.0 10^3/uL Neutrophil % 77.8 % Lymphocyte % 13.1 % Monocyte % 7.2 % Eosinophil % 1.3 % Basophils % 0.3 % NRBC 0.0 /100 WBC NRBC % 0.0 % Test performed on Dec 02, 2020 09:03 eGFR 37.8 mL/min Impression: Macrocytic normochromic anemia etiology unclear could be nutritional as patient is on G-tube feeding since diagnosed with tongue CA, other possibility could be due to chemoradiation or chronic blood loss from chemoradiation induced pharyngitis or considering his age underlying myelodysplasia cannot be ruled out. Status post 2 units of packed RBCs in June 2020 History of left base of tongue CA nonkeratinizing type squamous cell carcinoma p16 positive, T4a, N2C, M0, stage Tameka, status post combined chemoradiation with high-dose cisplatin 3 weekly x3 completed on June 04, 2020 at [facility], as per patient, follow-up CT scan shows excellent response Incidental finding of lung nodule, now being monitored with follow-up CT scan of chest., Follow-up CT scan of chest done on July 27, 2020 showed no increase in size since March 2020 and suggest follow-up in [address] scan of chest. History of smoking 3 pack/year, now quit. Plan: Discussed with patient regarding labs white blood count 6.1 hemoglobin 11.6 g compared to 11.4 previously hematocrit 37.1 platelets 216,000 CMP within normal limit except creatinine 1.8 Clinically, patient doing well with no new signs suggestive of recurrence of disease. He was recently evaluated by ENT, underwent CT scan of the neck as well as biopsy from pharyngeal lesion which was, as per patient benign, patient will continue to follow with ENT on regular basis Patient also has history of pulmonary nodules for which she is being followed by pulmonology and follow-up CT scan chest is scheduled for today. His follow-up labs shows mild renal insufficiency, will recommend nephrology consult but at PMDs discretion. Patient return to clinic in 3 months with CBC CMP Signed By: Latonia Han M.D. <<Signature on File>>
== END 2021-03-31 05:58 | disposition home or self-care (01) ==
LOC: ONCMED 06:03
PROVIDERS: PCP Nurse Practitioner; Visit Provider Internal Medicine Hematology & Oncology
DX: D64.9 Anemia, unspecified (principal); R91.1 Solitary pulmonary nodule; N28.9 Disorder of kidney and ureter, unspecified; Z87.891 Personal history of nicotine dependence; Z85.810 Personal history of malignant neoplasm of tongue; Z79.899 Other long term (current) drug therapy
CPT/HCPCS: 99214

== ENCOUNTER 2021-03-31 12:47 | Outpatient (CLI) | payer MEDICARE, SELFPAY ==
--- NOTE | 2021-03-31 13:45 | CT_ITS ---
WS: [id number] CT CHEST TECHNIQUE: Noncontrast CT of the chest with coronal and sagittal reformatted images. CLINICAL INFORMATION: follow up on lung nodules COMPARISON: CT July 27, 2020, PET/CT January 2021 and August 2020 DLP: 611.[address] scans at [facility] use at least one of these dose optimization techniques: automat ed exposure control; mA and/or kV adjustment per patient size (includes targeted exams where dose is matched to clinical indication); or iterative reconstruction. FINDINGS: Slight induration in the lower neck and thoracic inlet consistent with prior radiation therapy. Moder ate chronic emphysematous changes. No acute pulmonary infiltrates. No focal pneumonia or pleural flui d. Calcified granulomas. Calcified granulomatous disease. Interval removal of the gastrostomy tube si nce the prior examination. 5 mm noncalcified pulmonary nodule right lung apex is unchanged. A few tiny nodules in the left upper lobe likely inflammatory are unchanged. Calcified mediastinal, hilar, and subcarinal lymph nodes. Ad renal glands are normal. Normal GE junction. 13 mm upper pole left renal cyst. CT/CT chest wo con [id number] IMPRESSION: 1. Noncalcified 5 mm nodule right lung apex unchanged. 2. A few tiny nodules in the left lung apex peripherally likely inflammatory a re unchanged 3. No mediastinal or hilar lymphadenopathy. 4. No other significant changes since July 27, 2020
== END 2021-03-31 12:48 | disposition home or self-care (01) ==
PROVIDERS: PCP Nurse Practitioner; Visit Provider Internal Medicine Pulmonary Disease
DX: R91.1 Solitary pulmonary nodule (principal)
CPT/HCPCS: 71250

== ENCOUNTER 2021-06-10 13:48 | Outpatient (CLI) | payer MEDICARE, SELFPAY ==
--- NOTE | 2021-06-10 14:15 | USCV_ITS ---
Osman Almanza Age: 70 Gender: M : 1950 Exam Date: 06/10/2021 14:10 Ordering Phys: Courtney Bernard Technologist: GATITO [place]am [place] [facility] [place] Indication: thrombus of rt internal jugular vein PROCEDURES: Comparison:. 12/17/20 Venous duplex imaging was performed in only the right upper extremity. The following venous structures were evaluated: internal jugular vein, subclavian vein, axillary vein, and brachial veins. In addition, the radial vein and ulnar vein. Serial compression, augmentation maneuvers, and spectral Doppler flow evaluation were performed. FINDINGS: Thrombus appears to remain present in the right jugular vein today. Innominate vein not visualized well. All other veins examined appear free of thrombus at this time. CONCLUSIONS Chronic appearing DVT right jugular vein. Similar to the prior exam. Dr. Alisa Condon DO (Electronically Signed) Final Date: 10 June 2021 15:22 Amended: 11 June 2021 15:13 C
== END 2021-06-10 13:49 | disposition home or self-care (01) ==
LOC: RAD 13:53
PROVIDERS: PCP Nurse Practitioner; Visit Provider Nurse Practitioner
DX: I82.C21 Chronic embolism and thrombosis of right internal jugular vein (principal)
CPT/HCPCS: 93971

== ENCOUNTER 2021-07-01 12:31 | Outpatient (CLI) | payer MEDICARE, SELFPAY ==
[2021-07-01 13:36] LABS: Basophils % 0.2 %; Eosinophils # 0.1 10^3/uL (0.0-0.8); Eosinophils % 0.9 %; Hematocrit 34.4 % (42.0-52.0); Hemoglobin 10.7 g/dL (11.7-16.6); Lymphocytes # 0.9 10^3/uL (0.8-4.8); Lymphocytes % 13.6 %; Mean Corpuscular HGB Conc 31.1 g/dL (30.0-36.0); Mean Corpuscular Hemoglobin 29.6 pg (28.0-34.0); Mean Platelet Volume 9.3 fL (7.4-10.4); Monocytes # 0.4 10^3/uL (0.2-0.9); Monocytes % 6.2 %; Neutrophils # 5.09 10^3/uL (1.8-7.7); Neutrophils % 78.8 %; Nucleated Red Blood Cells % 0 %; Platelet Count 231 10^3/cmm (130-400); Red Blood Count 3.62 10^6/uL (4.1-5.3); Red Cell Distribution Width 13.1 % (12.1-15.1); White Blood Count 6.5 10^3/uL (4.0-10.0)
[2021-07-01 14:08] LABS: Alanine Aminotransferase 10 U/L (0-41); Albumin Level 4.1 g/dL (3.5-5.2); Alkaline Phosphatase 53 IU/L (40-130); Anion Gap 14.1 (5-19); Aspartate Amino Transferase 18 U/L (0-40); Blood Urea Nitrogen 28 mg/dL (8-23); Calcium 9.2 mg/dL (8.5-10.5); Carbon Dioxide 25 mmol/L (22-29); Chloride 102 mmol/L (98-107); Globulin 2.4 g/dL (1.3-4.6); Glomerular Filtration Rate 46.5 mL/min (90-130); Glucose 87 mg/dL (65-115); Osmolality Calculated 289 mOsm/kg (285-295); Potassium 4.1 mmol/L (3.5-5.1); Sodium 137 mmol/L (136-145); Total Bilirubin 0.2 mg/dL (0.15-1.2); Total Protein 6.5 g/dL (6.6-8.7)
[2021-07-01 16:16] LABS: Ferritin 135 ng/mL (30-400); Iron 38 ug/dL (59-158); Percent Saturation 14.6 % (20-50); Total Iron Binding Capacity 260 mcg/dl; Unsaturated Iron Binding 222 ug/dL (112-347)
--- NOTE | 2021-07-01 16:23 | ONC FU_ITS ---
Dr. Han follow up note Patient: Osman Almanza Unit #: [id number]: 1950 Dicatated By: Latonia Han M.D.Date of Visit:Jul 01, 2021 Onc Med Follow-up/Prog Note History of Present Illness: Mr. Almanza is a 70-year-old gentleman who was in his usual health until January 2020. He was diagnosed with left base of tongue CA, p16 positive, nonkeratinizing type squamous cell carcinoma, clinical T4 N2 cM0. He was referred to [facility] where he underwent combined chemoradiation with high-dose cisplatin 3 weekly x3 which he completed on June 04, 2020. On June 10, 2020, he was admitted to [facility] with chills, generalized weakness, oral pain and coughing. His lab work-up showed creatinine 1.93, white blood count 1.6 ANC 1200 hemoglobin 8.8 hematocrit and platelets 178,000. He was treated with IV antibiotics. Mr Almanza was seen by PMD with progressive anemia and was given 2 units of packed RBC. His follow-up labs done on June 30, 2020 showed white blood count 6 hemoglobin 11 hematocrit 33.7 platelets 360,000., As per patient, his follow-up CT scan done at [place] (after combined chemoradiation therapy) showed excellent response to the treatment with resolution of left basilar tongue lesion. However, there was incidental finding of lung nodule, now being monitored. He was scheduled for follow-up CT scan of chest. Follow-up CT scan of chest for subcentimeter, bilateral upper lobe pulmonary nodules done on July 27, 2020 showed no increase in size since July 09, 2020, negative on CT PET scan done in March 2020.. Prior granulomatous disease, no enlarging mediastinal or hilar lymph nodes. Mr Almanza also had G-tube placement, which was functioning well. He did havefollow-up with speech/physical therapy regarding initiation of oral feeding. He reports his tube fell ouit in October 2020 and he has been eating well without it. He reports his colonscopoy from 2007 was unremarkable. Came for follow-up, denies any specific complaints, no fever chills, no nausea or vomiting, no diarrhea constipation, no melena hematochezia, no hemoptysis or hematemesis, no jaundice, no peripheral neuropathy, no shortness of breath or palpitation, overall feeling well, following with ENT on regular basis, next follow-up is due soon. Also following pulmonology for history of pulmonary nodules Medications: Tamsulosin HCl 1 Tablet (of 0.4 mg) Capsule Oral daily, Xarelto 1 Tablet (of 20 mg) Oral daily Allergies: No Known Allergies. Review of Systems: Review of Systems is not available for this patient. Vital Signs: Performed on Jul 01, 2021 15:08 Height - 71.00 in Weight - 152.2 lbs (HIGH) BSA - 1.88 sq.m BMI - 21.23 Temperature - 98.8 F Pulse - 61 /min Respiration - 18 /min BP - 129/74 mm(hg) O2 Sat - 99 % Pain - 0 Fatigue - 2 Performance Status: 0 - Fully active, able to carry on all predisease activities without restrictions. (ECOG) Physical Examination: ENMT - no rash no cyanosis no lymphadenopathy, Respiratory - Lungs are clear to auscultation, Cardiovascular - Regular rate and rhythm of heart, Abdomen - Soft, bowel sounds present, Extremities - No visible edema. Lab/Imaging: Test performed on Mar 30, 2021 11:04 Sodium 144 mmol/L Potassium 4.9 mmol/L Chloride 106 mmol/L CO2 27 mmol/L Anion Gap 15.9 BUN 26 mg/dL Creatinine 1.8 mg/dL Cr Clearance (Est) 37.50 mL/min Glucose 92 mg/dL Osmolality - Calculated 302 mOsm/kg Calcium 9.6 mg/dL Protein, Total 6.3 g/dL Albumin 4.3 g/dL Globulin 2.0 g/dL Bilirubin, Total 0.3 mg/dL ALT (SGPT) 13 Units/L AST (SGOT) 20 Units/L Alkaline Phosphatase 62 IU/L WBC 6.1 10^3/uL RBC 3.71 10^6/uL HGB 11.6 g/dL HCT 37.1 % MCV 100.0 fl MCH 31.3 pg MCHC 31.3 g/dL RDW 13.5 % Platelet Count 216 10^3/uL MPV 9.9 fl Neutrophils 4.77 10^3/uL Lymphocytes 0.8 10^3/uL Monocytes 0.4 10^3/uL Eosinophils 0.1 10^3/uL Basophils 0.0 10^3/uL Neutrophil % 77.8 % Lymphocyte % 13.1 % Monocyte % 7.2 % Eosinophil % 1.3 % Basophils % 0.3 % NRBC 0.0 /100 WBC NRBC % 0.0 % Impression: Macrocytic normochromic anemia etiology unclear could be nutritional as patient is on G-tube feeding since diagnosed with tongue CA, other possibility could be due to chemoradiation or chronic blood loss from chemoradiation induced pharyngitis or considering his age underlying myelodysplasia cannot be ruled out. Status post 2 units of packed RBCs in June 2020 History of left base of tongue CA nonkeratinizing type squamous cell carcinoma p16 positive, T4a, N2C, M0, stage Tameka, status post combined chemoradiation with high-dose cisplatin 3 weekly x3 completed on June 04, 2020 at [facility], as per patient, follow-up CT scan shows excellent response Incidental finding of lung nodule, now being monitored with follow-up CT scan of chest., Follow-up CT scan of chest done on July 27, 2020 showed no increase in size since March 2020 and suggest follow-up in [address] scan of chest. History of smoking 3 pack/year, now quit. Plan: Discussed with patient regarding his labs white blood count 6.5 hemoglobin 10.7 hematocrit 34.4 platelets 231,000 CMP within normal limit except creatinine 1.5 compared to 1.8 previously Clinically, patient is doing reasonably well with no new signs symptoms just of recurrence of disease, patient being followed by ENT physician on 6 monthly basis and next follow-up is due soon patient also has history of pulmonary nodules for which she is being followed by pulmonology on a regular basis. His follow-up lab work-up shows progressive but mild anemia, well compensated, no obvious signs of gross bleeding, etiology remained inconclusive, will consider anemia work-up including iron studies, B12 level, patient was advised to try oral iron. Then he will return to clinic in 2 months with CBC and iron studies. Signed By: Latonia Han M.D. <<Signature on File>>
== END 2021-07-01 12:32 | disposition home or self-care (01) ==
PROVIDERS: PCP Nurse Practitioner; Visit Provider Internal Medicine Hematology & Oncology
DX: D53.9 Nutritional anemia, unspecified (principal); Z85.810 Personal history of malignant neoplasm of tongue; R91.1 Solitary pulmonary nodule; Z87.891 Personal history of nicotine dependence; Z92.21 Personal history of antineoplastic chemotherapy; Z92.3 Personal history of irradiation; Z79.899 Other long term (current) drug therapy
CPT/HCPCS: 36415; 80053; 82728; 83540; 83550; 85025; 99214

== ENCOUNTER → 2021-10-27 11:02 | Outpatient (BNVA) | payer MEDICARE, SELFPAY | PROVIDERS: PCP Nurse Practitioner; Visit Provider Nurse Practitioner Family | DX: L02.11 Cutaneous abscess of neck (principal) | CPT/HCPCS: 87070; 87075; 87205 ==

== ENCOUNTER → 2022-01-06 14:54 | Outpatient (BNVA) | payer MEDICARE, OTHER, SELFPAY | PROVIDERS: PCP Nurse Practitioner; Visit Provider Nurse Practitioner | DX: M25.562 Pain in left knee (principal); E55.9 Vitamin D deficiency, unspecified; D50.9 Iron deficiency anemia, unspecified | CPT/HCPCS: 73562; 80053; 82306; 82607; 83540; 85025 ==

== ENCOUNTER → 2022-01-12 09:49 | Outpatient (BNVA) | payer MEDICARE, OTHER, SELFPAY | PROVIDERS: PCP Nurse Practitioner; Visit Provider Nurse Practitioner | DX: E61.1 Iron deficiency (principal); N18.30 Chronic kidney disease, stage 3 unspecified; R73.9 Hyperglycemia, unspecified | CPT/HCPCS: 82310; 82728; 83036; 83550; 83735; 83970; 84100; 85045 ==

== ENCOUNTER → 2022-02-07 09:31 | Outpatient (BNVA) | payer MEDICARE, SELFPAY | PROVIDERS: PCP Nurse Practitioner; Referring Provider Internal Medicine Hematology & Oncology; Visit Provider Surgery | DX: D50.9 Iron deficiency anemia, unspecified (principal) | CPT/HCPCS: 99212 ==

== ENCOUNTER 2022-02-17 14:30 | Oncology outpatient (recurring) (ONCR) | payer MEDICARE, OTHER, SELFPAY ==
[2022-02-03 08:00] LABS: Basophils % 0.3 %; Eosinophils # 0.1 10^3/uL (0.0-0.8); Hematocrit 28.9 % (42.0-52.0); Hemoglobin 8.7 g/dL (11.7-16.6); Lymphocytes # 0.5 10^3/uL (0.8-4.8); Lymphocytes % 8.7 %; Mean Corpuscular HGB Conc 30.1 g/dL (30.0-36.0); Mean Corpuscular Hemoglobin 25.7 pg (28.0-34.0); Mean Corpuscular Volume 85.5 fl (80-94); Mean Platelet Volume 9.1 fL (7.4-10.4); Monocytes # 0.4 10^3/uL (0.2-0.9); Monocytes % 6.4 %; Neutrophils # 4.97 10^3/uL (1.8-7.7); Neutrophils % 83.3 %; Nucleated Red Blood Cells % 0 %; Platelet Count 251 10^3/cmm (130-400); Red Blood Count 3.38 10^6/uL (4.1-5.3)
[2022-02-03 08:23] LABS: Ferritin 22 ng/mL (30-400); Iron 19 ug/dL (59-158); Percent Saturation 5.5 % (20-50); Total Iron Binding Capacity 341 mcg/dl; Unsaturated Iron Binding 322 ug/dL (112-347)
[2022-02-10 13:34] VITALS: BP 106/50; PULSE 67; RESP 16; TEMP 36.8; O2SAT 97
[2022-02-10] MEDS: sodium chloride 0.9% 500 ML 100 ML IV (13:47)
[2022-02-10] MEDS: ferric carboxy (IVPB) 750 MG in sodium chloride 0.9% (100 ml) 100 ML 345 MG IV (13:50)
[2022-02-17] MEDS: ferric carboxy (IVPB) 750 MG in sodium chloride 0.9% (100 ml) 100 ML 345 MG IV (13:18)
[2022-02-17 16:26] VITALS: BP 117/74; PULSE 70; RESP 20; TEMP 36.4
== END 2022-02-22 23:59 | disposition home or self-care (01) ==
PROVIDERS: PCP Nurse Practitioner; Visit Provider Internal Medicine Hematology & Oncology
DX: D50.9 Iron deficiency anemia, unspecified (principal); Z53.9 Procedure and treatment not carried out, unspecified reason
CPT/HCPCS: 36415; 82728; 83540; 83550; 85025; 96365; 99214; 99999; J1439; J7040

== ENCOUNTER 2022-03-03 06:57 | Day surgery (SDC) | payer MEDICARE, OTHER, SELFPAY ==
[2022-03-01 09:23] VITALS: BMI 21.2
[2022-03-03 07:38] VITALS: BP 149/65; PULSE 53; RESP 16; TEMP 36.5; O2SAT 99
[2022-03-03] MEDS: sodium chloride 0.9% 1,000 ML 30 ML IV (07:45)
--- NOTE | 2022-03-03 08:12 | P.ANESASSM_ITS ---
Pre-Anesthetic Assessment Height/Weight: Height 1.83 m Weight 70.942 kg Temp Pulse Resp BP Pulse Ox 97.7 F 53 L 16 149/65 99 03/03/22 07:38 03/03/22 07:38 03/03/22 07:38 03/03/22 07:38 03/03/22 07:38 Preop Diagnosis: anemia Operation Date: 03/03/22 08:45 Proposed Procedures p EGD 26785 colonoscopy 38054/D50.9(Not Applicable) - DO kulwant Anne Colonoscopy(Not Applicable) - Gold Hankins DO Familial anesthetic complications: none Was Beta Destiney taken within 24 hours: N/A Was Clonidine taken within 24 hours: N/A Last intake: Intake Last Liquid Date 03/02/22 Last Liquid Time 20:00 Last Solid Date 03/01/22 Last Solid Time 21:00 Social No alcohol and No tobacco Exam alert, oriented x 3, clear to auscultation bilaterally and regular rate & rhythm Airway Submandibular: within normal limits Cervical ROM: within normal limits Mallampati: Class I Dentition: chipped Comments: Comments: Missing teeth Pulmonary hx of throat cancer s/p radiation/chemo CV/HEM Right jugular occlusion Chronic Renal Insufficiency Cr 2.2 BUN 36 GI Gastroesophageal Reflux Disease Metabolic None reported Musc/skel None reported Neuropsych None reported Anesthetic Plan ASA status: 3 Anesthesia: Anesthesia Evaluation, General and MAC Other: I discussed with the patient risks, goals, and benefits of MAC and general anesthesia. We discussed spectrum of MAC anesthesia including conversion to general as well as possibility of recall of intraoperative stimuli including discomfort/pain. Patient agrees to proceed with MAC. Risk of > 500 ml blood loss (7ml/kg in children): No Medications/Allergies Home Medications Medication Instructions Recorded Confirmed Last Taken Type rivaroxaban 20 mg tablet (Xarelto) 20 mg PO DAILY #30 tab 01/20/22 03/02/22 02/28/22 Rx tamsulosin 0.4 mg capsule 0.4 mg PO .2 times day #60 cap 02/04/22 03/02/22 03/02/22 Rx Allergies Allergy/AdvReac Type Severity Reaction Status Date / Time No Known Allergies Allergy Verified 03/01/22 09:22 Current Medications Generic Name Dose Route Start Last Admin Trade Name Freq PRN Reason Stop Dose Admin Sodium Chloride 1,000 mls @ 30 mls/hr 03/03/22 07:15 03/03/22 07:45 Sodium Chloride 0.9% IV 03/04/22 07:14 30 mls/hr .Q24H TIFFANY Administration PFSH Anesthesia Medical History CKD (chronic kidney disease) stage 3, GFR 30-59 ml/min Gastro-esophageal reflux disease with esophagitis Gastrointestinal tube in situ History of oral cancer Cancer base tongue completed chemotherapy 3 rounds and 35 days of radiation treatment [place] [id number] Dr. Bennett Personal history of malignant neoplasm of tongue Cancer base tongue completed chemotherapy 3 rounds and 35 days of radiation treatment [place] [id number] Dr. Bennett Urinary hesitancy Surgical History H[place] [facility] [place] Father CAD (coronary artery disease) Denies family history of Diabetes Clotting disorder Dementia Hyperlipidemia Psychiatric illness Chronic kidney disease (CKD) Suicide Anesthesia complication Bleeding disorder Lung disease Cancer Hypertension Stroke Social History Smoking and tobacco status: former smoker Quit status (tobacco): has quit using tobacco Year quit tobacco: 2008 Former quit date comment: .5 PPD X 10 yrs Second hand smoke exposure: No Smoking risk assessment/counseling performed?: No Alcohol intake: never Desire information about alcohol rehabilitation?: No Counseling given: No Desire information about substance/drug rehabilitation?: No Counseling given: No Adopted: No Caregiver/support person: No Lives independently: Yes Household members: spouse Housing: House Marital status: service: No Current occupational status: retired 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
--- NOTE | 2022-03-03 09:24 | W.PM.OPSUD ---
Surgery/Procedure H&P Update DATE OF PROCEDURE: March 03, 2022 DATE H&P PERFORMED: 02/07/22 CHANGES TO PREVIOUS DOCUMENTATION: none PREOP DIAGNOSIS: anemia PLANNED PROCEDURE: Operation Date: 03/03/22 08:45 Proposed Procedures p EGD 45509 colonoscopy 38118/D50.9(Not Applicable) - DO kulwant Anne Colonoscopy(Not Applicable) - Gold Hankins DO
[2022-03-03 09:54] VITALS: BP 97/59; PULSE 60; RESP 16; TEMP 36.2; O2SAT 98
--- NOTE | 2022-03-03 09:56 | ANE.PACU2 ---
Documented by User: Flora Rodriguez CRNA 03/03/22 09:56 Inpatient post-anesthesia follow up: Airway intact: Yes Vital signs: Temperature 97.1 F Pulse Rate 60 Respiratory Rate 16 Blood Pressure 97/59 Pulse Oximetry 98 Oxygen Delivery Me thod Room Air Oxygen Flow Rate Fraction of Inspir ed Oxygen Hydration adequate: Yes Nausea and vomiting: No Pain level: 1 Mental status: Baseline
[2022-03-03 10:08] VITALS: BP 92/63; PULSE 54; RESP 16; TEMP 36.3; O2SAT 99
== END 2022-03-03 10:18 | disposition home or self-care (01) ==
PROVIDERS: PCP Nurse Practitioner; Visit Provider Surgery
PROC: 0DJ08ZZ Inspection of Upper Intestinal Tract, Via Natural or Artificial Opening Endoscopic (ICD-10-PCS; CPT 43235; principal; 2022-03-03 08:45)
PROC: 0DJD8ZZ Inspection of Lower Intestinal Tract, Via Natural or Artificial Opening Endoscopic (ICD-10-PCS; CPT 45378; 2022-03-03 08:45)
DX: D64.9 Anemia, unspecified (principal); K57.30 Diverticulosis of large intestine without perforation or abscess without bleeding; K64.4 Residual hemorrhoidal skin tags; K29.80 Duodenitis without bleeding; Z85.89 Personal history of malignant neoplasm of other organs and systems; Z92.21 Personal history of antineoplastic chemotherapy; K21.9 Gastro-esophageal reflux disease without esophagitis; N18.30 Chronic kidney disease, stage 3 unspecified; Z87.891 Personal history of nicotine dependence
CPT/HCPCS: 43239; 45378; 88305; 88342; J2704; J7030

== ENCOUNTER 2022-03-21 11:28 | Oncology outpatient (recurring) (ONCR) | payer MEDICARE, SELFPAY ==
[2022-03-21 12:19] LABS: Basophils % 0.3 %; Eosinophils # 0.1 10^3/uL (0.0-0.8); Eosinophils % 0.9 %; Hematocrit 37.4 % (42.0-52.0); Hemoglobin 11.8 g/dL (11.7-16.6); Lymphocytes # 0.6 10^3/uL (0.8-4.8); Lymphocytes % 10.6 %; Mean Corpuscular HGB Conc 31.6 g/dL (30.0-36.0); Mean Corpuscular Hemoglobin 28.8 pg (28.0-34.0); Mean Corpuscular Volume 91.2 fl (80-94); Mean Platelet Volume 9.7 fL (7.4-10.4); Monocytes # 0.3 10^3/uL (0.2-0.9); Monocytes % 5.3 %; Neutrophils # 4.83 10^3/uL (1.8-7.7); Neutrophils % 82.6 %; Nucleated Red Blood Cells % 0 %; Platelet Count 187 10^3/cmm (130-400); Red Cell Distribution Width 21.2 % (12.1-15.1); White Blood Count 5.9 10^3/uL (4.0-10.0)
[2022-03-21 12:40] LABS: Alanine Aminotransferase 14 U/L (0-41); Albumin Level 4.3 g/dL (3.5-5.2); Alkaline Phosphatase 64 IU/L (40-130); Aspartate Amino Transferase 19 U/L (0-40); Blood Urea Nitrogen 27 mg/dL (8-23); Calcium 9.2 mg/dL (8.5-10.5); Carbon Dioxide 28 mmol/L (22-29); Chloride 103 mmol/L (98-107); Ferritin 298 ng/mL (30-400); Globulin 2.5 g/dL (1.3-4.6); Glomerular Filtration Rate 40.2 mL/min (90-130); Glucose 99 mg/dL (65-115); Iron 49 ug/dL (59-158); Osmolality Calculated 293 mOsm/kg (285-295); Percent Saturation 22.7 % (20-50); Sodium 139 mmol/L (136-145); Total Bilirubin 0.3 mg/dL (0.15-1.2); Total Iron Binding Capacity 215 mcg/dl; Total Protein 6.8 g/dL (6.6-8.7); Unsaturated Iron Binding 166 ug/dL (112-347)
== END 2022-03-24 23:59 | disposition home or self-care (01) ==
PROVIDERS: PCP Nurse Practitioner; Visit Provider Internal Medicine Hematology & Oncology
DX: D50.9 Iron deficiency anemia, unspecified (principal); N18.30 Chronic kidney disease, stage 3 unspecified; Z85.810 Personal history of malignant neoplasm of tongue; Z92.3 Personal history of irradiation; Z87.891 Personal history of nicotine dependence
CPT/HCPCS: 80053; 82728; 83540; 83550; 85025; 99213; 99214; G0463

== ENCOUNTER 2022-04-20 08:36 | Oncology outpatient (recurring) (ONCR) | payer MEDICARE, SELFPAY ==
[2022-04-20 08:56] LABS: Basophils % 0.3 %; Eosinophils # 0.1 10^3/uL (0.0-0.8); Eosinophils % 0.7 %; Hematocrit 39.7 % (42.0-52.0); Hemoglobin 13.3 g/dL (11.7-16.6); Lymphocytes # 0.7 10^3/uL (0.8-4.8); Lymphocytes % 9.2 %; Mean Corpuscular HGB Conc 33.5 g/dL (30.0-36.0); Mean Corpuscular Hemoglobin 29.7 pg (28.0-34.0); Mean Corpuscular Volume 88.6 fl (80-94); Mean Platelet Volume 9.2 fL (7.4-10.4); Monocytes # 0.3 10^3/uL (0.2-0.9); Monocytes % 4.6 %; Neutrophils # 6.12 10^3/uL (1.8-7.7); Neutrophils % 84.8 %; Nucleated Red Blood Cells % 0 %; Platelet Count 179 10^3/cmm (130-400); Red Blood Count 4.48 10^6/uL (4.1-5.3); Red Cell Distribution Width 18.7 % (12.1-15.1); White Blood Count 7.2 10^3/uL (4.0-10.0)
[2022-04-20 11:54] LABS: Ferritin 227 ng/mL (30-400); Iron 50 ug/dL (59-158)
[2022-04-20 11:55] LABS: Percent Saturation 20.2 % (20-50); Total Iron Binding Capacity 247 mcg/dl; Unsaturated Iron Binding 197 ug/dL (112-347)
== END 2022-04-24 23:59 | disposition home or self-care (01) ==
LOC: ONCMED 08:37
PROVIDERS: PCP Nurse Practitioner; Visit Provider Internal Medicine Hematology & Oncology
DX: D50.9 Iron deficiency anemia, unspecified (principal); N18.30 Chronic kidney disease, stage 3 unspecified; Z85.810 Personal history of malignant neoplasm of tongue; Z79.899 Other long term (current) drug therapy; Z87.891 Personal history of nicotine dependence
CPT/HCPCS: 82728; 83540; 83550; 85025; 99214

== ENCOUNTER 2022-07-25 11:51 | Oncology outpatient (recurring) (ONCR) | payer MEDICARE, SELFPAY ==
[2022-07-25 13:22] LABS: Basophils % 0.3 %; Eosinophils # 0.1 10^3/uL (0.0-0.8); Eosinophils % 0.7 %; Hematocrit 41.5 % (42.0-52.0); Hemoglobin 13.6 g/dL (11.7-16.6); Lymphocytes # 0.9 10^3/uL (0.8-4.8); Lymphocytes % 11.6 %; Mean Corpuscular HGB Conc 32.8 g/dL (30.0-36.0); Mean Corpuscular Hemoglobin 31.4 pg (28.0-34.0); Mean Corpuscular Volume 95.8 fl (80-94); Mean Platelet Volume 9.4 fL (7.4-10.4); Monocytes # 0.5 10^3/uL (0.2-0.9); Monocytes % 6.3 %; Neutrophils % 80.7 %; Nucleated Red Blood Cells % 0 %; Platelet Count 219 10^3/cmm (130-400); Red Blood Count 4.33 10^6/uL (4.1-5.3); Red Cell Distribution Width 14.3 % (12.1-15.1); White Blood Count 7.6 10^3/uL (4.0-10.0)
[2022-07-25 13:48] LABS: Alanine Aminotransferase 13 U/L (0-41); Albumin Level 4.2 g/dL (3.5-5.2); Alkaline Phosphatase 61 U/L (40-130); Anion Gap 12.2 (5-19); Aspartate Amino Transferase 20 U/L (0-40); Blood Urea Nitrogen 30 mg/dL (8-23); Calcium 9.9 mg/dL (8.5-10.5); Carbon Dioxide 28 mmol/L (22-29); Chloride 97 mmol/L (98-107); Glomerular Filtration Rate 33.3 mL/min (90-130); Glucose 95 mg/dL (65-115); Iron 86 ug/dL (59-158); Osmolality Calculated 282 mOsm/kg (285-295); Percent Saturation 32.2 % (20-50); Potassium 4.2 mmol/L (3.5-5.1); Sodium 133 mmol/L (136-145); Total Bilirubin 0.4 mg/dL (0.15-1.2); Total Iron Binding Capacity 267 mcg/dl; Total Protein 7.2 g/dL (6.6-8.7); Unsaturated Iron Binding 181 ug/dL (112-347)
== END 2022-07-25 23:59 | disposition home or self-care (01) ==
LOC: ONCMED 11:52
PROVIDERS: PCP Nurse Practitioner; Visit Provider Internal Medicine Hematology & Oncology
DX: D50.9 Iron deficiency anemia, unspecified (principal); Z85.810 Personal history of malignant neoplasm of tongue; N18.30 Chronic kidney disease, stage 3 unspecified
CPT/HCPCS: 80053; 83540; 83550; 85025; 99214

== ENCOUNTER 2022-10-28 06:06 | Outpatient (CLI) | payer MEDICARE, SELFPAY ==
--- NOTE | 2022-10-28 | US_ITS ---
WS: [id number] RENAL ULTRASOUND HISTORY: CKD STAGE 3 COMPARISON: None available. TECHNIQUE: 2-D and color Doppler imaging of the kidney submitted. Horseshoe-shaped kidney. Renal cortex extends across the midline over the aorta. There is mild thinni ng anteriorly where the kidneys are interconnected. Right kidney: 9.5 cm x 3.9 cm x 4.4 cm. Kidney appears normal size. No solid mass. Cortex measures 1.0 cm. No obstruction. Left kidney: 8.8 cm x 3.5 cm x 4.6 cm. Mild atrophy LEFT kidney. No obstruction or solid mass. There is diffuse cortical thinning. Cortex me asures 4 mm. Simple cyst mid kidney measures 3.4 x 4.0 x 3.5 cm. Aorta: Normal. Urinary Bladder: Marked diffuse bladder wall thickening measuring up to 8 mm. Prostate gland is enlar ged and lobulated encroaching into the base of the bladder. Prostate measures 4.3 x 4.0 x 4.7 cm. US/US renal BI* [id number] IMPRESSION: 1. Horseshoe-shaped kidneys. No renal obstruction. 2. Mild atrophy LEFT kidney with moderate diffuse cortical thinning, cortex me asures 4 mm. 3. Diffuse bladder wall thickening measuring up to 8 mm probably due to outlet obstruction from prostate gland enlargement. 4. Simple cyst LEFT kidney maximum diameter 4.0 cm.
== END 2022-10-28 06:07 | disposition home or self-care (01) ==
LOC: RAD 06:08
PROVIDERS: PCP Nurse Practitioner; Visit Provider Internal Medicine Nephrology
DX: N18.30 Chronic kidney disease, stage 3 unspecified (principal); Q63.1 Lobulated, fused and horseshoe kidney; N26.1 Atrophy of kidney (terminal); N28.1 Cyst of kidney, acquired
CPT/HCPCS: 76770

== ENCOUNTER → 2022-11-01 10:49 | Outpatient (BNVA) | payer MEDICARE, SELFPAY | PROVIDERS: PCP Nurse Practitioner | DX: R39.11 Hesitancy of micturition (principal); R97.20 Elevated prostate specific antigen [PSA] | CPT/HCPCS: 84153 ==

== ENCOUNTER → 2022-11-11 07:58 | Outpatient (BNVA) | payer MEDICARE, SELFPAY | PROVIDERS: PCP Nurse Practitioner; Referring Provider Registered Nurse; Visit Provider Registered Nurse | DX: D50.9 Iron deficiency anemia, unspecified (principal); N18.30 Chronic kidney disease, stage 3 unspecified | CPT/HCPCS: 80048; 81000; 82306; 82310; 83970; 85025 ==

== ENCOUNTER → 2023-02-03 08:13 | Outpatient (BNVA) | payer MEDICARE, SELFPAY | PROVIDERS: PCP Nurse Practitioner; Visit Provider Registered Nurse | DX: N18.4 Chronic kidney disease, stage 4 (severe) (principal) | CPT/HCPCS: 80069; 82310; 82570; 83970; 84156; 85025 ==

== ENCOUNTER → 2023-08-14 08:45 | Outpatient (BNVA) | payer MEDICARE, SELFPAY | PROVIDERS: PCP Nurse Practitioner; Visit Provider Internal Medicine Nephrology | DX: N18.30 Chronic kidney disease, stage 3 unspecified (principal) | CPT/HCPCS: 80069; 82043; 82306; 85025 ==

== ENCOUNTER → 2024-02-21 08:55 | Outpatient (BNVA) | payer MEDICARE, SELFPAY | PROVIDERS: PCP Nurse Practitioner; Visit Provider Nurse Practitioner | DX: N18.30 Chronic kidney disease, stage 3 unspecified (principal); N18.9 Chronic kidney disease, unspecified; Z13.6 Encounter for screening for cardiovascular disorders; Z12.5 Encounter for screening for malignant neoplasm of prostate; R39.11 Hesitancy of micturition | CPT/HCPCS: 80053; 80061; 80069; 82310; 82570; 83970; 84156; 85025; G0103 ==

== ENCOUNTER → 2024-04-16 08:58 | Outpatient (BNVA) | payer MEDICARE, SELFPAY | PROVIDERS: PCP Nurse Practitioner; Visit Provider Nurse Practitioner | DX: R39.11 Hesitancy of micturition (principal); R97.20 Elevated prostate specific antigen [PSA] | CPT/HCPCS: 84153 ==

== ENCOUNTER → 2024-08-26 07:55 | Outpatient (BNVA) | payer MEDICARE, SELFPAY | PROVIDERS: PCP Nurse Practitioner; Visit Provider Nurse Practitioner | DX: E55.9 Vitamin D deficiency, unspecified (principal); N18.30 Chronic kidney disease, stage 3 unspecified; N18.9 Chronic kidney disease, unspecified | CPT/HCPCS: 80069; 82306; 82310; 82570; 83970; 84156; 85025 ==

== ENCOUNTER → 2024-10-31 10:43 | Outpatient (BNVA) | payer MEDICARE, SELFPAY | PROVIDERS: PCP Nurse Practitioner; Visit Provider Clinical Nurse Specialist Adult Health | DX: J10.1 Influenza due to other identified influenza virus with other respiratory manifestations (principal) | CPT/HCPCS: 87400; 87426 ==

== ENCOUNTER 2024-12-10 07:37 | Outpatient (CLI) | payer MEDICARE, SELFPAY ==
--- NOTE | 2024-12-10 07:42 | CT_ITS ---
WS: [id number] CT NECK WITH CONTRAST HISTORY: NECK MASS TECHNIQUE: Contiguous 2 mm axial images are performed through the neck with intravenous contrast. Sagittal and coronal reformats are also submitted. All CT scans at [facility] use at least one of these dose optimization techniques: automated exposure control; mA and/or kV adjustment per patient size (includes targeted exams where dose is matched to clinical indication); or iterative reconstruction. CONTRAST: CONTRAST: Omnipaque 350; 100 mL IV. DLP: 197.03 mGy.cm COMPARISON: 07/09/2020, 02/21/2020, PET/CT 02/13/2021 Mild heterogeneity and distortion of the soft tissues at the tongue base. Along the central tongue base is a 7 x 8 mm low-attenuation nodule. Along the RIGHT glossotonsillar sulcus is an area of fat in the subtle enhancement which could represent recurrent tumor. This is best seen on image 14 and 15 of series 5. Small cervical chain lymph nodes. No enlarged lymph nodes. Thyroid gland and salivary glands are normally enhancing with no masses. No osseous abnormalities. Visualized portions of the skull base demonstrate no abnormalities. Orbits and globes are within normal limits. No soft tissue masses. Visualized paranasal sinuses and mastoid air cells are normal. Long-term stability 5 mm nodules at the lung apices. CT/CT neck w con* [id number] IMPRESSION: 1. Very mild enhancement along the RIGHT glossotonsillar sulcus. Recurrent thr oat cancer not excluded. 2. Additional low-attenuation nodule in the midline at the tongue base measure s 7 x 8 mm. Recommend direct visualization. 3. No cervical chain lymphadenopathy.
[2024-12-10 08:12] LABS: Blood Urea Nitrogen 19 mg/dL (8-23)
[2024-12-10] MEDS: iohexol 350 mg/mL 500 mL Btl (per mL) IV (08:21)
== END 2024-12-10 07:38 | disposition home or self-care (01) ==
PROVIDERS: PCP Nurse Practitioner; Visit Provider Specialist
DX: K14.9 Disease of tongue, unspecified (principal); R93.89 Abnormal findings on diagnostic imaging of other specified body structures; R59.0 Localized enlarged lymph nodes; R91.8 Other nonspecific abnormal finding of lung field
CPT/HCPCS: 70491; 82565; 84520

== ENCOUNTER → 2024-12-26 12:51 | Outpatient (BNVA) | payer MEDICARE, SELFPAY | PROVIDERS: PCP Nurse Practitioner; Visit Provider Nurse Practitioner | DX: N18.30 Chronic kidney disease, stage 3 unspecified (principal); Z13.6 Encounter for screening for cardiovascular disorders; J06.9 Acute upper respiratory infection, unspecified; R53.83 Other fatigue | CPT/HCPCS: 80053; 80061; 82607; 84443; 85025 ==

== ENCOUNTER → 2025-01-23 09:04 | Outpatient (BNVA) | payer MEDICARE, SELFPAY | PROVIDERS: PCP Nurse Practitioner; Visit Provider Nurse Practitioner | DX: E03.8 Other specified hypothyroidism (principal) | CPT/HCPCS: 84439; 84443; 84481 ==

== ENCOUNTER 2025-01-29 10:51 | Outpatient (CLI) | payer MEDICARE, SELFPAY ==
--- NOTE | 2025-01-29 11:15 | US_ITS ---
WS: [id number] THYROID ULTRASOUND HISTORY: E03.8 - Other specified hypothyroidism COMPARISON: 09/09/2020 Right lobe: 2.0 cm x 1.8 cm x 2.9 cm (w x ap x l). Volume: 4.9 cm3. Heterogeneous poorly defined thyroid. No discrete nodules. No increased vascularity. Left lobe: 1.4 cm x 1.3 cm x 2.0 cm (w x ap x l). Volume: 1.7 cm3. Small caliber heterogeneous thyroid is slightly echogenic. No nodule or mass. No increased vascularity. Isthmus: 0.2 cm. US/US thyroid 51084 IMPRESSION: 1. Small caliber echogenic thyroid. Similar in appearance to the CT of 12/11/19 25. 2. No thyroid nodules.
== END 2025-01-29 10:52 | disposition home or self-care (01) ==
PROVIDERS: PCP Nurse Practitioner; Visit Provider Nurse Practitioner
DX: E03.8 Other specified hypothyroidism (principal); E04.9 Nontoxic goiter, unspecified; R93.89 Abnormal findings on diagnostic imaging of other specified body structures
CPT/HCPCS: 76536

== ENCOUNTER → 2025-02-19 10:11 | Outpatient (BNVA) | payer MEDICARE, SELFPAY | PROVIDERS: PCP Nurse Practitioner; Visit Provider Nurse Practitioner | DX: N18.30 Chronic kidney disease, stage 3 unspecified (principal); E55.9 Vitamin D deficiency, unspecified; Z12.5 Encounter for screening for malignant neoplasm of prostate | CPT/HCPCS: 80069; 82306; 82310; 82570; 83970; 84156; 85025; G0103 ==

== ENCOUNTER → 2025-04-07 11:16 | Outpatient (BNVA) | payer MEDICARE, SELFPAY | PROVIDERS: PCP Nurse Practitioner; Visit Provider Nurse Practitioner | DX: E03.8 Other specified hypothyroidism (principal) | CPT/HCPCS: 84439; 84443; 84481 ==

== ENCOUNTER → 2025-04-25 09:04 | Outpatient (BNVA) | payer MEDICARE, SELFPAY | PROVIDERS: PCP Nurse Practitioner; Visit Provider Nurse Practitioner | DX: R39.11 Hesitancy of micturition (principal) | CPT/HCPCS: 84153 ==

== ENCOUNTER → 2025-07-30 12:08 | Outpatient (BNVA) | payer MEDICARE, SELFPAY | PROVIDERS: PCP Nurse Practitioner; Visit Provider Nurse Practitioner | DX: E78.2 Mixed hyperlipidemia (principal); E03.8 Other specified hypothyroidism | CPT/HCPCS: 80053; 80061; 84439; 84443; 84481 ==